=== PATIENT | female | born 1945 | race Caucasian/White ===

== ENCOUNTER 2020-11-02 07:44 | Outpatient (CLI) | payer MEDICARE, SELFPAY ==
--- NOTE | ~2020-11-02 | MM_ITS ---
EXAMINATION: MM screening [facility] BI w murali HISTORY: Screening mammogram TECHNIQUE: Craniocaudal and mediolateral oblique 3-D tomosynthesis images were obtained and synthetic 2-D images were generated. CAD analysis was submitted and interpreted. COMPARISON: 10/01/2019 BREAST PARENCHYMAL COMPOSITION: There are scattered areas of fibroglandular density. FINDINGS: There is stable architectural distortion in the upper outer quadrant of the right breast at the site of prior excisional biopsy. There is no evidence of suspicious mass, calcification, or arch itectural distortion to suggest malignancy in either breast. There has been no suspicious interval ch juanis. IMPRESSION: 1. No mammographic evidence of malignancy. 2. Recommend routine screening mammography in one year. BI-RADS Category 2: Benign finding(s). Reviewed, dictated and finalized at location A. LOCATOR
== END 2020-11-02 07:45 | disposition home or self-care (01) ==
LOC: ANHIMG 07:49
PROVIDERS: PCP Emergency Medicine; Visit Provider Emergency Medicine
DX: Z12.31 Encounter for screening mammogram for malignant neoplasm of breast (principal)
CPT/HCPCS: 77063; 77067

== ENCOUNTER 2021-06-04 10:19 | Outpatient (CLI) | payer MEDICARE, SELFPAY ==
[2021-06-04 11:07] LABS: Alanine Aminotransferase 20 U/L (4-35); Albumin Level 4.8 g/dL (3.5-5.1); Alkaline Phosphatase 67 U/L (38-126); Anion Gap 11 mmol/L (8-16); Aspartate Amino Transferase 32 U/L (14-36); Blood Urea Nitrogen 20 mg/dL (7-17); Calcium 9.5 mg/dL (8.4-10.2); Carbon Dioxide 29 mmol/L (22-30); Chloride 102 mmol/L (98-107); Cholesterol 109 mg/dL (0-200); Estimated Glomerular Filt Rate > 60; Glucose 145 mg/dL (65-110); HDL Direct 38 mg/dL; Sodium 142 mmol/L (137-145); Triglycerides 136 mg/dL (<150)
[2021-06-04 11:18] LABS: LDL Cholesterol Direct 49 mg/dL
[2021-06-04 12:05] LABS: Hemoglobin A1C 6.9 % (<5.7)
== END 2021-06-04 10:20 | disposition home or self-care (01) ==
LOC: ANHLAB 10:22
PROVIDERS: PCP Emergency Medicine; Visit Provider Emergency Medicine
DX: E78.5 Hyperlipidemia, unspecified (principal); E11.9 Type 2 diabetes mellitus without complications
CPT/HCPCS: 36415; 80053; 80061; 83036

== ENCOUNTER 2021-07-26 07:59 | Outpatient (CLI) | payer MEDICARE, SELFPAY ==
--- NOTE | 2021-07-26 09:04 | ECG_ITS ---
Measurements Intervals [place] Rate: 75 P: MD: 0 QRS: -32 QRSD: 89 T: 15 QT: 391 QTc: 437 Interpretive Statements ATRIAL FIBRILLATION LEFT AXIS DEVIATION POOR R WAVE PROGRESSION, ANTERIOR LEADS INFERIOR INFARCT, AGE INDETERMINATE BASELINE ARTIFACT- I, II, III, AVR, AVL, AVF ABNORMAL ECG Electronically Signed On 07-26-2021 12:51:47 [address] EQUIPMENT OPERATOR by Pato Anderson D.O.
[2021-07-26 10:00] LABS: Basophils Absolute Auto 0.1 K/mm3 (0.0-0.1); Basophils Percent Auto 0.8 % (0.2-1.2); Eosinophils Absolute Auto 0.1 K/mm3 (0-0.3); Eosinophils Percent Auto 1.8 % (0-4.4); Hematocrit 36.9 % (37.0-47.0); Hemoglobin 11.9 g/dL (12.0-15.0); Immature Granulocyte Absolute 0.01 K/mm3 (0.00-0.031); Immature Granulocyte Percent A 0.2 % (0-0.5); Lymphocytes Absolute Auto 1.68 K/mm3 (0.9-3.2); Lymphocytes Percent Auto 27.7 % (18.3-44.2); Mean Corpuscular HGB Conc 32.2 g/dl (32-36); Mean Corpuscular Hemoglobin 31.8 pg (26-34); Mean Corpuscular Volume 98.7 fl (80-100); Mean Platelet Volume 10.9 fl (7.4-10.4); Monocytes Absolute Auto 0.5 K/mm3 (0.1-0.6); Monocytes Percent Auto 7.4 % (2.6-8.5); Neutrophils Absolute Auto 3.8 K/mm3 (1.3-6.7); Neutrophils Percent Auto 62.1 % (45.5-73.1); Platelet Count Result 264 k/mm3 (150-375); Red Blood Count 3.74 M/mm3 (4.2-5.4); Red Cell Distribution Width 13.8 % (11.5-14.5); White Blood Count 6.1 K/mm3 (4.5-10.0)
[2021-07-26 10:09] LABS: INR 2.6; Partial Thromboplastin Time 33.6 SECONDS (22.3-36.8); Prothrombin Time 27.4 Seconds (11.1-14.7)
[2021-07-26 10:10] LABS: Urine Cotinine NEGATIVE
[2021-07-26 10:14] LABS: Albumin Level 4.5 g/dL (3.5-5.1); Anion Gap 7 mmol/L (8-16); Blood Urea Nitrogen 18 mg/dL (7-17); Calcium 9.4 mg/dL (8.4-10.2); Carbon Dioxide 32 mmol/L (22-30); Chloride 100 mmol/L (98-107); Estimated Glomerular Filt Rate > 60; Glucose 165 mg/dL (65-110); Potassium 4.2 mmol/L (3.4-5.0); Sodium 139 mmol/L (137-145)
[2021-07-26 10:21] LABS: Add Urine Microscopic? YES; Appearance Urine Clear (Clear); Bilirubin Urine Negative (Negative); Blood Urine Negative (Negative); Color Urine Yellow (Yellow); Glucose Urine UA Negative (Negative); Ketones Urine Negative (Negative); Leukocyte Esterase Ur 2+ LEU/UL (Negative); Mucus Urine Rare /lpf; Nitrate Urine Negative (Negative); Protein Urine Negative (Negative); Specific Grav Ur 1.014 (1.001-1.035); Squamous Epithelial Cell Urine Rare /hpf (Few); Urobilinogen Urine Negative mg/dL (<2.0)
== END 2021-07-26 08:00 | disposition home or self-care (01) ==
LOC: ANHSURGERY 08:03
PROVIDERS: PCP Emergency Medicine; Visit Provider Orthopaedic Surgery
DX: M17.11 Unilateral primary osteoarthritis, right knee (principal); Z01.818 Encounter for other preprocedural examination
CPT/HCPCS: 80048; 80307; 82040; 85025; 85610; 85730; 87081; 87086; 93005

== ENCOUNTER 2021-08-24 00:21 | Day surgery (SDC) | payer MEDICARE, SELFPAY ==
--- NOTE | 2021-07-26 07:58 | PC.NURSE ---
Addendum entered by Dinora Gerard RN 08/20/21 09:58: PT RESCHEDULED TO 08/24/21, 1400. INSTR PT TO ARRIVE AT 1200. REVIEWED PRE-OP INSTRUCTIONS, SHE RELAYS UNDERSTANDING. PT STATES DR BLACKWELL INSTR TO HOLD XERALTO 3 DAYS PRE-OP,SHE RELAYS UNDERSTANDING. Original Note: Report to the Outpatient Waiting Room, entrance under the green pavilion located off [facility], at time ___6:00AM____ on date 08/11/21 . OR Time: 7:30AM___. - You and your visitor will be asked a series of questions to screen for COVID 19 for your protection. - A mask is required within the hospital. - Only one visitor is allowed at this time. Patient visitors will be guided where to wait when not with patient. Preoperative COVID Testing Requirements: No COVID Test needed if: (proof is required; if not received patient will have Rapid Test prior to entry) - Patient has received COVID Vaccine at least 14 days prior to procedure date or - Patient has positive COVID test result within last 90 days of surgery date. COVID Test needed if above criteria is not met If not COVID vaccinated a COVID test must be conducted within 72 hours of surgery and patient is asked to isolate self from time of testing until procedure. You will go to the [facility] for your COVID testing. The [facility] site is located at the corner of [address] [facility]. You will only be called if COVID results are positive and your surgeon may reschedule your elective surgery date. Patients may have clear liquids (water, carbonated beverages, clear teas, apple juice) until 3 hours prior to surgery with a maximum of 20 ounces. - No food from midnight until time of surgery - Infants may have breast milk until 4 hours before surgery, infant formula 6 hours prior to surgery. - Children will be allowed to drink immediately following surgery. If applicable, please bring a bottle or sippy cup to assist with drinking. Juice, water, soda, and popsicles are readily available. For infants on formula, please bring formula the day of surgery. Pacifiers are allowed. Take the following medications with a SIP of water the morning of surgery: ALBUTEROL INHALER NEEDED, EYE DROPS, METOPROLOL Medications to discontinue per physician XERALTO PER DR BLACKWELL(PT SEEING MD TODAY, WILL CONFIRM) Date to take last dose Please no make-up, nail andorran, hairspray, perfume, deodorant, or body powder the day of surgery. No jewelry (including any body piercings) or valuables the day of surgery, leave them at home. Please take a shower or bath the night before, or the morning of, surgery with an antibacterial soap. Wear comfortable, loose fitting clothing. Children are encouraged to wear pajamas. - Jewelry must be removed prior to entering the operating room. Rings and piercings that are not removed may be cut off. - The hospital will not accept responsibility for valuables. - Please leave all valuables, including medications, at home the day of surgery. HIBICLENS SCRUB DAILY STARTING 3 DAYS PRIOR TO SURGERY If you are going home after surgery, a licensed intermodal truck driver must drive you home. - NO public transportation without another adult. - We recommend that an adult stay with you for 24 hours following discharge. - We also recommend that you do not drive, make important decision, drink alcoholic beverages, or take any drugs that were not prescribed by your health care provider for at least 24 hours after your discharge time. For Pediatric surgeries, we recommend two adults accompany the child home (only one inside the building at this time). Follow any additional instructions given to you from your surgeon. Telephone instructions given to ____PATIENT and asked if any additional questions and then verbalized understanding. Patient advised to call surgeon office or pre surgery nurs
[2021-07-26 08:22] VITALS: BMI 28.9
[2021-07-26 08:48] VITALS: BP 164/82; PULSE 76; RESP 16; TEMP 36.7; O2SAT 97
--- NOTE | 2021-08-10 13:45 | SUR.PREOP ---
patient contacted and informed case cancelled for 08/11/2021 instructed to call office for new surgery date and time and to ask about Xeralto being held or restarted, understanding stated
[2021-08-24] VITALS (11 sets, daily range): BP systolic 116–150; BP diastolic 49–72; PULSE 74–90; RESP 12–18; TEMP 35.9–36.9; O2SAT 96–100
--- NOTE | ~2021-08-24 | XR_ITS ---
EXAMINATION: XR knee RT 2V DATE: 08/24/2021 12:38 INDICATION: Postoperative evaluation following right total knee arthroplasty. TECHNIQUE: Anteroposterior and lateral views of the right knee were obtained. COMPARISON: None. FINDINGS: Right total knee arthroplasty without patellar resurfacing appears well seated and in near anatomic a lignment. No fractures identified. Skin marco a and expected postoperative subcutaneous, intramedul arturo and intra-articular gas. IMPRESSION: 1. Right total knee arthroplasty, negative for postoperative purposes. Reviewed, dictated and finalized at location A. IZATION MANAGEMENT UM NURSE
--- NOTE | 2021-08-24 07:18 | WPDHPUPDATE1 ---
History and Physical Update Update Date/Time: 08/24/21 07:18 History and Physical has been reviewed, including an updated exam of the patient. There are NO changes in the patient's condition. Risks, benefits, and alternatives have been discussed and questions answered. Patient agrees to proceed with procedure.
[2021-08-24] MEDS: ACETAMINOPHEN 500 MG TABLET 1000 MG PO ×3 (09:30→21:50)
[2021-08-24] MEDS: LACTATED RINGERS 1,000 ML 30 ML IV CONT ×2 (09:50→12:26)
--- NOTE | 2021-08-24 09:56 | WPDANESEPPF ---
Anes - Initial Pre Proc Eval Procedure: Operation Date: 08/24/21 11:00 Proposed Procedures p Right Total Knee Arthroplasty - Jaxon Garcia MD Date/Time: 08/24/21 09:56 Surgeon: Jaxon Garcia MD Pre Op Diagnosis: right knee djd Patient Data Age: 76 Gender: F Height: 1.57 m Weight: 71.7 kg Last Vital Signs Temp 36.7 C 07/26/21 08:48 Pulse 76 07/26/21 08:48 Resp 16 07/26/21 08:48 BP 164/82 H 07/26/21 08:48 Pulse Ox 97 07/26/21 08:48 Allergies Allergy/AdvReac Type Severity Reaction Status Date / Time No Known Allergies Allergy Verified 08/24/21 09:14 Home Medications Medication Instructions Recorded Confirmed Type albuterol sulfate 90 mcg/actuation 1 inhalation INHALATION Q4H PRN 09/06/19 08/24/21 History aerosol inhaler lancets #50 each 09/06/19 07/26/21 History latanoprost 0.005 % eye drops 1 drop EACH EYE HS 09/06/19 08/24/21 History metoprolol succinate 100 mg 100 mg PO QAM 09/06/19 08/24/21 History tablet,extended release 24 hr blood sugar diagnostic #10 each 01/24/20 07/26/21 History brimonidine 0.1 % eye drops 1 drop EACH EYE BID ml 01/24/20 08/24/21 History niacin 500 mg capsule,extended 500 mg PO BID cap 01/24/20 08/24/21 History release atorvastatin 40 mg tablet 40 mg PO DAILY #90 tablet 05/18/21 08/24/21 Rx chlorhexidine gluconate 4 % 1 applic TOPICAL ONCE #237 ml 06/18/21 08/24/21 Rx topical liquid lisinopril 2.5 mg PO QAM 07/26/21 08/24/21 History metformin 500 mg PO BID 07/26/21 08/24/21 History rivaroxaban [Xarelto] 20 mg PO HS 07/26/21 08/24/21 History alendronate 70 mg tablet 70 mg PO WEEKLY #12 tablet 08/11/21 08/24/21 Rx Vascepa 1 gram capsule 2 g PO BID #360 cap NS 08/16/21 08/24/21 Rx Patient hx anesthesia problems: none Family hx anesthesia problems: none Results Review: All pre-operative results and documents have been reviewed as part of the pre-operative evaluation. [facility] Past Medical History Medical History Afib HLD (hyperlipidemia) HTN (hypertension) Left knee pain Post-menopausal Quadriceps weakness Surgical History Surgical History S/P total knee arthroplasty Social History Social History Second hand tobacco smoke exposure: Yes ( X 55 YRS) Alcohol intake: never Substance use: never Living arrangements: with family Additional living arrangements comments: Gender identity (if verbalized by the patient): Female Spiritual care concerns: No Anes - Eval Final PreProcedure Day of Procedure 08/24/21 09:56 Patient weight: overweight Heart: irregular rhythm Lungs: clear to auscultation Airway: Mallampati scale class II Neurological: alert and oriented Last oral intake: >/= 8 hours ASA classification: III Emergent: no Anesthetic plan: proceed Anesthesia type and monitoring: general LMA and standard monitoring Results Review: All pre-operative results and documents have been reviewed as part of the pre-operative evaluation. Informed Consent: The patient's anesthetic plan and its attendant risks and benefits were discussed with the patient/family/POA. Questions were solicited and answers provided to the satisfaction of the patient/family/POA.
[2021-08-24 09:57] LABS: Glucose Point of Care 145 mg/dl (65-105)
[2021-08-24] MEDS: TRANEXAMIC ACID 1,000MG/ISO100 1,000 MG/100 ML BAG 200 MG IVPB (10:00)
--- NOTE | 2021-08-24 10:15 | WPDANESPNB ---
Anes - Peripheral Nerve Block Date/Time: 08/24/21 10:15 I have discussed with the patient/family/POA the placement of a peripheral nerve block for post-operative pain management, including associated risks, benefits, complications, and side effects. Alternative methods of post-operative analgesia were detailed. Questions were solicited and answers provided to the satisfaction of the patient/family/POA. Time-Out: A pre-procedural Time-Out was completed immediately before starting the procedure and confirmed: Patient Identification, Site, Procedure, Patient Position and the Availability of Requisite Equipment. Clinical Indications: Acute post-operative pain management requested by the operative surgeon. Nerve Block Insertion Note Anes-nerve block: femoral right Patient position: supine Skin prep: chlorhexidine Needle: 22 gauge, stimulating, insulated echogenic needle. Needle length: 80 mm Technique: nerve stimulation lost at (mA) (0.3) Injectate: bupivacaine 0.25% with epi 5 mcg/ml (no epi, 25cc) Observations: tolerated well Complications: none Procedure start time:: 1010 Procedure end time:: 1014
[2021-08-24 10:23] LABS: Prothrombin Time 13.4 Seconds (11.1-14.7)
[2021-08-24] MEDS: ceFAZolin 2 GM/D5W 50 ML 2 GM/50 ML BAG IVPB ×2 (10:34→17:59)
[2021-08-24] MEDS: GENTAMICIN BONE CEMENT REFOBACIN 1 EACH TOPICAL (11:38)
[2021-08-24] MEDS: TRANEXAMIC ACID 1,000 MG/10 ML AMPUL 1000 MG IV PUSH (11:50)
--- NOTE | 2021-08-24 12:45 | W.PM.PROC2 ---
Procedure Note - Detailed Date of Procedure 08/24/21 Pre-op Diagnosis right knee djd Post-op Diagnosis same Procedure Performed R TKA Surgeon Jaxon Garcia MD Anesthesia general Description of Procedure THE RIGHT KNEE WAS PREPPED AND DRAPED IN THE STERILE FASHION. THERE WAS A 10 DEGREE FLEXION CONTRACTURE. A MIDLINE SKIN INCISION WAS MADE. A MEDIAL PARAPATELLAR ARTHROTOMY WAS MADE. THE PATELLA WAS EVERTED. THERE WAS TRICOMPARTMENT DJD. THERE WAS MINIMAL PATELLA DJD. AN INTRAMEDULLARY FRANCESCA WAS PLACED IN THE FEMUR. A DISTAL FEMORAL CUT WAS MADE IN 5 DEGREES OF VALGUS REMOVING APPROXIMATELY 9 MM OF BONE FROM THE DISTAL FEMUR. THE FEMUR WAS SIZED TO 60. A 60 FEMORAL CUTTING BLOCK WAS PLACED IN 3 DEGREES OF EXTERNAL ROTATION AND IN ALIGNMENT WITH FRANCISCO'S LINE AND THE TRANSEPICONDYLAR AXIS. ANTERIOR POSTERIOR AND CHAMFER CUTS WERE MADE. THE CUTS WERE EXCELLENT. NEXT AN INTRAMEDULLARY CUTTING GUIDE WAS PLACED IN THE TIBIA. A TRANS TIBIAL CUT WAS MADE ALONG THE LONG AXIS OF THE TIBIA. APPROXIMATELY 10 MM OF BONE WAS REMOVED FROM THE HIGH SIDE OF THE TIBIA. THE TIBIA WAS THEN PLANED TO A SMOOTH SURFACE. POSTERIOR FEMORAL OSTEOPHYTES WERE REMOVED FROM THE FEMORAL CONDYLES. A 71 TIBIAL TRIAL WAS PLACED IN ALIGNMENT WITH THE 1/3 MEDIAL ASPECT OF THE TIBIAL TUBERCLE. THEN A 60 FEMORAL TRIAL COMPONENT WAS PLACED. BOTH HAD EXCELLENT FITS. EVENTUALLY A 10 MM CR POLYETHYLENE TRIAL COMPONENT WAS PLACED. THE KNEE WAS TAKEN THROUGH A RANGE OF MOTION. THE KNEE CAME OUT TO FULL EXTENSION. THERE WAS NO ABNORMAL TILT TO THE PATELLA. THERE WAS GOOD A/P AND VARUS/VALGUS STABILITY. THERE WAS NO EXCESSIVE ROLL BACK WITH FLEXION. THE TRIAL COMPONENTS WERE REMOVED. THEN A 60 FEMORAL COMPONENT AND 71 TIBIAL COMPONENT WITH A 10 CR POLYETHYLENE COMPONENT WERE CEMENTED INTO PLACE. ONCE THE CEMENT WAS HARD THE KNEE WAS TAKEN THROUGH A ROM AGAIN AND FOUND TO BE STABLE WITH NO PATELLA TILT NO EXCESSIVE ROLL BACK WITH FLEXION AND GOOD STABILITY WITH COMPLETE AND FULL EXTENSION. THE KNEE WAS IRRIGATED WITH STERILE BETADINE AND WATER FOR ABOUT 3 MINUTES. THE BLEEDERS WERE CAUTERIZED. THE ARTHROTOMY WAS REPAIRED WITH NUMBER 1 VICRYL. THE SUB CUTANEOUS LAYER WITH 2-0 VICRYL AND THE SKIN WITH ED. THE WOUND WAS WASHED AND A STERILE DRESSING WAS APPLIED. PATIENT WAS EXTUBATED. Estimated Blood Loss -50.0 Pathology none sent Complications No immediate complications Condition stable Disposition PACU
[2021-08-24 12:51] LABS: Glucose Point of Care 115 mg/dl (65-105)
--- NOTE | 2021-08-24 14:27 | ADMGEN ---
This patient, Eugenia Ghotra, was admitted to [facility] Surgery-3. Patient oriented to hospital policies and general routines including ID bracelet, bed and alarms, visiting hours, pain management, procedures, bathroom and other care routines, personal items, smoking policy, room service/diet, and visiting hours. Information on how to activate the Rapid Response Team has been discussed. Patient/Family are encouraged to report perceived risks to care and to ask questions if they do not understand what they are told or what they should do.
[2021-08-24] MEDS: ONDANSETRON INJ 4 MG/2 ML VIAL IV PUSH (15:56)
[2021-08-24] MEDS: SODIUM CHLORIDE 0.9% IV 1,000 ML 125 ML IV CONT (16:07)
[2021-08-24 17:51] LABS: Glucose Point of Care 132 mg/dl (65-105)
[2021-08-24] MEDS: NIACIN SA 500 MG TABLET PO (18:00)
[2021-08-24] MEDS: SENNA/DOCUSATE SODIUM TABLET 2 TAB PO (18:00)
[2021-08-24] MEDS: OMEGA 3 POLYUNSAT FATTY ACIDS 1 GM CAP 2 GM PO (18:01)
[2021-08-24] MEDS: metFORMIN HCL 500 MG TABLET PO (18:01)
[2021-08-24] MEDS: BRIMONIDINE TARTRATE 0.1% 5 ML OPHTH DROPS 1 DROP EACH EYE (18:10)
[2021-08-24] MEDS: FAMOTIDINE 20 MG TABLET PO (21:12)
[2021-08-24] MEDS: RIVAROXABAN 20 MG TABLET PO (21:12)
[2021-08-24] MEDS: LATANOPROST 0.005% OP SOLN 2.5 ML BTL 1 DROP EACH EYE (21:12)
[2021-08-25] MEDS: ONDANSETRON INJ 4 MG/2 ML VIAL IV PUSH ×2 (01:15→07:29)
[2021-08-25 03:22] VITALS: BP 151/78; PULSE 89; RESP 18; TEMP 37; O2SAT 100
[2021-08-25] MEDS: ceFAZolin 2 GM/D5W 50 ML 2 GM/50 ML BAG IVPB ×2 (03:27→10:47)
[2021-08-25] MEDS: ACETAMINOPHEN 500 MG TABLET 1000 MG PO (05:00)
[2021-08-25 06:00] VITALS: BP 127/67; PULSE 88; RESP 16; TEMP 36.4; O2SAT 97
[2021-08-25 06:52] LABS: Basophils Percent Auto 0.4 % (0.2-1.2); Hematocrit 31.6 % (37.0-47.0); Hemoglobin 10.3 g/dL (12.0-15.0); Immature Granulocyte Absolute 0.05 K/mm3 (0.00-0.031); Immature Granulocyte Percent A 0.4 % (0-0.5); Lymphocytes Percent Auto 11.6 % (18.3-44.2); Mean Corpuscular HGB Conc 32.6 g/dl (32-36); Mean Corpuscular Hemoglobin 31.5 pg (26-34); Mean Corpuscular Volume 96.6 fl (80-100); Mean Platelet Volume 10.5 fl (7.4-10.4); Monocytes Absolute Auto 0.8 K/mm3 (0.1-0.6); Monocytes Percent Auto 7.2 % (2.6-8.5); Neutrophils Percent Auto 80.4 % (45.5-73.1); Platelet Count Result 179 k/mm3 (150-375); Red Blood Count 3.27 M/mm3 (4.2-5.4); Red Cell Distribution Width 13.2 % (11.5-14.5); White Blood Count 11.2 K/mm3 (4.5-10.0)
[2021-08-25 07:14] LABS: Anion Gap 8 mmol/L (8-16); Blood Urea Nitrogen 15 mg/dL (7-17); Calcium 8.6 mg/dL (8.4-10.2); Carbon Dioxide 27 mmol/L (22-30); Chloride 97 mmol/L (98-107); Estimated CRCL calculation 63 ml/min; Estimated Glomerular Filt Rate > 60; Glucose 151 mg/dL (65-110); Sodium 132 mmol/L (137-145)
[2021-08-25] MEDS: metFORMIN HCL 500 MG TABLET PO (08:30)
[2021-08-25 08:45] VITALS: BP 142/64; PULSE 91; RESP 14; TEMP 36.2; O2SAT 98
[2021-08-25 09:16] VITALS: PULSE 91
[2021-08-25] MEDS: METOPROLOL SUCCINATE EXT REL 100 MG TABCR PO (09:16)
[2021-08-25] MEDS: FAMOTIDINE 20 MG TABLET PO (09:21)
[2021-08-25] MEDS: lisinopriL 2.5 MG TABLET PO (09:21)
[2021-08-25] MEDS: SENNA/DOCUSATE SODIUM TABLET 2 TAB PO (09:22)
[2021-08-25] MEDS: diphenhydrAMINE HCl INJ 50 MG/ML VIAL 25 MG IV PUSH (09:22)
[2021-08-25] MEDS: ATORVASTATIN 40 MG TABLET PO (09:22)
[2021-08-25] MEDS: BRIMONIDINE TARTRATE 0.1% 5 ML OPHTH DROPS 1 DROP EACH EYE (09:34)
--- NOTE | 2021-08-25 10:30 | P.PNAN_ITS ---
Anes - Prog Note Post-Op Date/Time: 08/25/21 10:30 Cardiovascular status: normal Respiratory status: normal Airway patency: baseline Mental status: baseline Post-Op hydration status: normal Vital Signs: Last Vital Signs Temp 36.4 C 08/25/21 06:00 Pulse 91 08/25/21 09:16 Resp 16 08/25/21 06:00 BP 127/67 08/25/21 06:00 Pulse Ox 97 08/25/21 06:00 Pain Score (VAS): 0 I/O: Intake & Output 08/24/21 08/25/21 08/25/21 23:59 07:59 15:59 Intake Total 50 800 Output Total 50 Balance 50 750 Laboratory Tests 08/25/21 06:44 08/25/21 06:44 08/24/21 08/24/21 08/24/21 09:20 12:49 17:48 WBC RBC Hgb Hct MCV MCH MCHC RDW Plt Count MPV Immature Gran % (Auto) Neut % (Auto) Lymph % (Auto) [place] % (Auto) Eos % (Auto) Baso % (Auto) Lymph # (Auto) [place] # (Auto) Eos # (Auto) Baso # (Auto) Abs Immat Gran (auto) Absolute Neuts (auto) Absolute Nucleated RBC Nucleated RBC % Sodium Potassium Chloride Carbon Dioxide Anion Gap BUN Creatinine Estim Creat Clear Calc Estimated GFR Glucose POC Capillary Glucose 115 H 132 H Calcium Blood Type A Positive Antibody Screen Negative 08/25/21 08/25/21 06:44 06:44 WBC 11.2 H RBC 3.27 L Hgb 10.3 L Hct 31.6 L MCV 96.6 MCH 31.5 MCHC 32.6 RDW 13.2 Plt Count 179 MPV 10.5 H Immature Gran % (Auto) 0.4 Neut % (Auto) 80.4 H Lymph % (Auto) 11.6 L [place] % (Auto) 7.2 Eos % (Auto) 0.0 Baso % (Auto) 0.4 Lymph # (Auto) 1.30 [place] # (Auto) 0.8 H Eos # (Auto) 0.0 Baso # (Auto) 0.0 Abs Immat Gran (auto) 0.05 H Absolute Neuts (auto) 9.0 H Absolute Nucleated RBC 0.0 Nucleated RBC % 0.0 Sodium 132 L Potassium 4.0 Chloride 97 L Carbon Dioxide 27 Anion Gap 8 BUN 15 Creatinine 0.60 L Estim Creat Clear Calc 63 Estimated GFR > 60 Glucose 151 H POC Capillary Glucose Calcium 8.6 Blood Type Antibody Screen Post-procedural complaints: none Patient Feedback: Patient satisfied with anesthetic care.
[2021-08-25 11:14] LABS: Glucose Point of Care 166 mg/dl (65-105)
[2021-08-25] MEDS: NIACIN SA 500 MG TABLET PO (11:21)
[2021-08-25] MEDS: OMEGA 3 POLYUNSAT FATTY ACIDS 1 GM CAP 2 GM PO (11:21)
--- NOTE | 2021-08-25 11:35 | PM.IMCN ---
Assessment and Plan Assessment and plan (1) S/P total knee arthroplasty: Qualifiers: Laterality: left Qualified Code(s): Z96.652 - Presence of left artificial knee joint Code(s): Z96.659 - Presence of unspecified artificial knee joint Status: Acute (2) Right knee DJD: Qualifiers: Osteoarthritis type: primary Qualified Code(s): M17.11 - Unilateral primary osteoarthritis, right knee Code(s): M17.11 - Unilateral primary osteoarthritis, right knee Status: Acute (3) Diabetes mellitus: Qualifiers: Diabetes mellitus type: type 2 Diabetes mellitus alf insulin use: without terminal supervisor use Diabetes mellitus complication status: without complication Qualified Code(s): E11.9 - Type 2 diabetes mellitus without complications Code(s): E11.9 - Type 2 diabetes mellitus without complications Status: Acute (4) HTN (hypertension): Qualifiers: Hypertension type: essential hypertension Qualified Code(s): I10 - Essential (primary) hypertension Code(s): I10 - Essential (primary) hypertension Status: Acute (5) Afib: Qualifiers: Atrial fibrillation type: paroxysmal Qualified Code(s): I48.0 - Paroxysmal atrial fibrillation Code(s): I48.91 - Unspecified atrial fibrillation Status: Acute (6) HLD (hyperlipidemia): Qualifiers: Hyperlipidemia type: mixed hyperlipidemia Qualified Code(s): E78.2 - Mixed hyperlipidemia Code(s): E78.5 - Hyperlipidemia, unspecified Status: Acute Additional Plan 76-year-old female admitted to the hospital for treatment of DJD of right knee with total knee arthroplasty. Patient was admitted underwent uncomplicated surgery and was monitored overnight. She did very well. At the time of discharge she is ambulating with walker, tolerating p.o., voiding and defecating without difficulty. She has been continued on her Xarelto for her atrial fibrillation as well as her other home medications and this has been reviewed with orthopedist. Discharge home with home health care in stable condition with indications of follow-up with her primary physician within 1 week and to return to orthopedist office as directed. HPI Data of Consult Consult date: 08/25/21 Requesting Physician: Jaxon Garcia MD Primary Care Provider: Hong Slater MD Consult Narrative Narrative: Eugenia Ghotra is a 76 year old female w HTN, hyperlipidemia, atrial fibrillation, and right degenerative joint disease of the knee is seen in surgical area after presenting to [facility] for right TKA. Patient is postoperative doing very well. She is able to ambulate to restroom with minimal assistance and her walker. Review of Systems Review of Systems: All systems reviewed & are unremarkable except as noted in HPI and below PMFSH Past Medical History Medical History (Updated 08/25/21 @ 17:32 by Jeana Horner MD) Afib Diabetes mellitus HLD (hyperlipidemia) HTN (hypertension) Left knee pain Post-menopausal Quadriceps weakness Surgical History Surgical History S/P total knee arthroplasty Family History Family History (Updated 08/25/21 @ 17:33 by Jeana Horner MD) Other Diabetes mellitus Heart disease Hypertension Social History Social History Smoking status: Never smoker Second hand tobacco smoke exposure: No Alcohol intake: former Substance use: never Living arrangements: with family Additional living arrangements comments: Gender identity (if verbalized by the patient): Female Spiritual care concerns: No Meds Home Medications and Allergies Home Medications Medication Instructions Recorded Confirmed Type albuterol sulfate 90 mcg/actuation 1 inhalation INHALATION Q4H PRN 09/06/19 08/24/21 History aerosol inhaler ann
--- NOTE | 2021-08-25 12:04 | PCOTNOTE ---
On 08/25/21, the student, Nancy Martinez, provided care and [facility] this [facility]. I have reviewed the student's documentation and agree with the findings.
--- NOTE | 2021-08-25 13:43 | PM.PNORT ---
Progress Note: A&P Additional Plan POD 1 DOING WELL OK TO DC HOME F/U IN 3 WEEKS Time Spent With Patient Time with patient: less than 15 minutes Subjective Subjective Date/Time Seen: 08/25/21 13:43 POD 1 DOING WELL. WALKING WELL WITH PT. PAIN CONTROLLED Exam Extrem: Other: R KNEE WOUND CLEAN AND DRY NV INTACT VSS AFEBRILE, DRESSING IN PLACE NV INTACT CALF SOFT NEG HOMANS SIGN Objective Data Vital Signs Vital Signs: Vital Signs - 24 hr 08/24/21 13:48 08/24/21 14:36 08/24/21 15:22 Temperature 36.6 C 35.9 C L 36.1 C L Pulse Rate 89 82 74 Respiratory Rate 14 14 12 Blood Pressure 150/68 H 145/67 H 148/49 H Pulse Oximetry 100 96 99 08/24/21 19:41 08/24/21 20:00 08/25/21 03:22 Temperature 36.9 C 37.0 C Pulse Rate 86 89 89 Respiratory Rate 16 18 18 Blood Pressure 116/57 L 151/78 H Pulse Oximetry 96 100 100 08/25/21 06:00 08/25/21 08:45 08/25/21 09:16 Temperature 36.4 C 36.2 C L Pulse Rate 88 91 91 Respiratory Rate 16 14 Blood Pressure 127/67 142/64 H Pulse Oximetry 97 98 Intake/Output Intake/Output: Intake & Output 08/22/21 08/23/21 08/24/21 08/25/21 23:59 23:59 23:59 23:59 Intake Total 2500 850 Output Total 50 Balance 2500 800 Meds/Results Medications: Active Medications Generic Name Dose Route Start Last Admin Trade Name Freq PRN Reason Stop Dose Admin Acetaminophen 1,000 mg 08/24/21 13:37 08/25/21 05:00 Acetaminophen 500 Mg Tablet PO 1,000 mg Q6H PRN Administration Pain Rated 1-3 Albuterol 1 puff 08/24/21 13:37 Albuterol Sulfate (*Sp) Aerosol 1 Puff INHALATION Q4H PRN Dyspnea Alendronate Sodium 70 mg 08/28/21 06:30 Alendronate Sodium 70 Mg Tablet PO Sa@0630 CY Atorvastatin Calcium 40 mg 08/25/21 09:00 08/25/21 09:22 Atorvastatin 40 Mg Tablet PO 40 mg DAILY CY Administration Brimonidine Tartrate 1 drop 08/24/21 17:00 08/25/21 09:34 Brimonidine Tartrate 0.1% 5 Ml Ophth Drops EACH EYE 1 drop BID CY Administration Diazepam 5 mg 08/24/21 13:37 Diazepam (*Crx) 5 Mg Tablet PO Q8H PRN Spasms Diphenhydramine HCl 25 mg 08/24/21 13:37 08/25/21 09:22 Diphenhydramine Hcl Inj 50 Mg/Ml Vial IV PUSH 25 mg Q6H PRN Administration Itching Famotidine 20 mg 08/24/21 21:00 08/25/21 09:21 Famotidine 20 Mg Tablet PO 20 mg Q12HR CY Administration Fish Oil 2 gm 08/24/21 17:00 08/25/21 11:21 [place] 3 Polyunsat Fatty Acids 1 Gm Cap PO 2 gm BID CY Administration Latanoprost 1 drop 08/24/21 21:00 08/24/21 21:12 Latanoprost 0.005% Op Soln 2.5 Ml Btl EACH EYE 1 drop HS CY Administration Lisinopril 2.5 mg 08/25/21 09:00 08/25/21 09:21 Lisinopril 2.5 Mg Tablet PO 2.5 mg QAM CY Administration Magnesium Hydroxide 30 ml 08/24/21 13:37 Magnesium Hydroxide Susp 30 Ml Udc PO BID PRN Constipation Metformin HCl 500 mg 08/24/21 17:00 08/25/21 08:30 Metformin Hcl 500 Mg Tablet PO 500 mg BIDWM CY Administration Metoprolol Succinate 100 mg 08/25/21 09:00 08/25/21 09:16 Metoprolol Succinate Ext Rel 100 Mg Tabcr PO 100 mg QAM CY Administration Naloxone HCl 0.1 mg 08/24/21 13:37 Naloxone Hcl 0.4 Mg/Ml Vial IV PUSH Q2M PRN Opiate Reversal Niacin 500 mg 08/24/21 17:00 08/25/21 11:21 Niacin Sa 500 Mg Tablet PO 500 mg BID CY Administration Ondansetron HCl 4 mg 08/24/21 13:37 08/25/21 07:29 Ondansetron Inj 4 Mg/2 Ml Vial IV PUSH 4 mg Q4H PRN Administration Nausea And Vomiting Oxycodone HCl 10 mg 08/24/21 13:37 Oxycodone Hcl (*Crx) 5 Mg Tab Ir PO Q4H PRN Pain Rated 7-10 Oxycodone/Acetaminophen 1 tablet 08/24/21 13:37 Oxycodone/Acetaminophen (*Crx) 5-325 Mg Tablet PO Q4H PRN Pain Rated 4-6 Polyethylene Glycol 17 gm 08/25/21 09:00 08/25/21 09:27 Polyethylene Glycol 3350 17 Gm Powd.Pack PO Not Given QAM CY Rivaroxaban 20 mg 08/24/21 2
--- NOTE | 2021-08-25 13:47 | PM.DS ---
DS: Admitting Diagnosis Discharge Date 08/25/21 Admitting Diagnosis R KNEE DJD DS: Discharge Diagnosis Discharge Diagnosis (1) Right knee DJD: Qualifiers: Osteoarthritis type: primary Qualified Code(s): M17.11 - Unilateral primary osteoarthritis, right knee Code(s): M17.11 - Unilateral primary osteoarthritis, right knee Status: Acute DS: Summary Hospital Course Reason for hospitalization: Hospital Course: AD HER R TKA AND WAS ADMITTED TO THE MED/SURG FLOOR WITH NO POSTOP COMPLICATIONS. SHE HAD PT THE DAY OF SURGERY. SHE WAS TAKING GOOD PO AND WAS DOING VERY WELL. SHE WAS DOING WELL ON POD 1 AND PASSED PT. SHE WAS TAKING GOOD PO INTAKE AND HER PAIN WAS CONTROLLED. SHE WOULD DC'd HOME. SHE WOULD F/U IN 2 WEEKS. SHE WAS TO CONTINUE HER ANTICOAGULATION WITH XARELTO. SHE WOULD HAVE HOME PT AND NURSING. SHE WOULD BE WBAT. SHE WOULD F/U IN 3 WEEKS OR SOONER IF SHE HAD A PROBLEM. Time spent discussing smoking cessation with patient: 3 to 10 minutes Time Spent with Patient Time attestation: Total time spent providing and/or coordinating discharge services: DS: Data Data Completed and Pending Labs on day of discharge: Labs from last 24 hours 08/25/21 08/25/21 08/25/21 11:11 06:44 06:44 WBC 11.2 H RBC 3.27 L Hgb 10.3 L Hct 31.6 L MCV 96.6 MCH 31.5 MCHC 32.6 RDW 13.2 Plt Count 179 MPV 10.5 H Immature Gran % (Auto) 0.4 Neut % (Auto) 80.4 H Lymph % (Auto) 11.6 L [place] % (Auto) 7.2 Eos % (Auto) 0.0 Baso % (Auto) 0.4 Lymph # (Auto) 1.30 [place] # (Auto) 0.8 H Eos # (Auto) 0.0 Baso # (Auto) 0.0 Abs Immat Gran (auto) 0.05 H Absolute Neuts (auto) 9.0 H Absolute Nucleated RBC 0.0 Nucleated RBC % 0.0 Sodium 132 L Potassium 4.0 Chloride 97 L Carbon Dioxide 27 Anion Gap 8 BUN 15 Creatinine 0.60 L Estim Creat Clear Calc 63 Estimated GFR > 60 Glucose 151 H POC Capillary Glucose 166 H Calcium 8.6 08/24/21 17:48 WBC RBC Hgb Hct MCV MCH MCHC RDW Plt Count MPV Immature Gran % (Auto) Neut % (Auto) Lymph % (Auto) [place] % (Auto) Eos % (Auto) Baso % (Auto) Lymph # (Auto) [place] # (Auto) Eos # (Auto) Baso # (Auto) Abs Immat Gran (auto) Absolute Neuts (auto) Absolute Nucleated RBC Nucleated RBC % Sodium Potassium Chloride Carbon Dioxide Anion Gap BUN Creatinine Estim Creat Clear Calc Estimated GFR Glucose POC Capillary Glucose 132 H Calcium Discharge Plan Discharge Patient Disposition: Home Health Service Discharge Instructions: Per Care Coordination, patient to discharge with [facility] ( [phone]) for PT/OT and fci services. Post Op Total Knee Replacement Instructions Dr. Jaxon Garcia [phone] ? Your dressing will be changed prior to your discharge. You will be sent home with one additional dressing to be changed in 5 days by the home health RN. Your marco a will be removed on the 14th day after surgery and steri-strips will be placed. ? You may shower with your dressing but do not submerge in a bath tub. ? Do not drive or operate machinery until you are released by Dr. Gracia. ? Do not walk without a walker for any reason until you are released by Dr. Garcia. ? Continue to use your ice machine. Please use a towel or pillow case to protect your skin before applying your ice machine. ? Do NOT place a pillow under your knee. You may use a pillow from the calf down if needed. ? You may begin use of your CPM machine at home if you have been given one pre-operatively. DO NOT USE WHILE YOU ARE SLEEPING. ? Your follow up appointment is indicated in your discharge instructions. ? Your medications have been sent to your pharmacy. ? Please contact our office with any questions/concerns regarding your knee at [phone]. Patient Instructions: Antibiotic Form, Rivaroxaban (By mouth) Stand Laurent
== END 2021-08-25 14:30 | disposition home health service (06) ==
LOC: ANHSURGERY 08:39 → ANHSUROVER 13:42
PROVIDERS: PCP Emergency Medicine; Visit Provider Orthopaedic Surgery
PROC: (CPT 27447; principal; 2021-08-24 11:00)
DX: M17.11 Unilateral primary osteoarthritis, right knee (principal); G89.18 Other acute postprocedural pain; E11.9 Type 2 diabetes mellitus without complications; I10 Essential (primary) hypertension; I48.91 Unspecified atrial fibrillation; E78.5 Hyperlipidemia, unspecified; Z79.51 Long term (current) use of inhaled steroids; Z79.01 Long term (current) use of anticoagulants; Z79.84 Long term (current) use of oral hypoglycemic drugs
CPT/HCPCS: 27447; 64447; 36415; 73560; 80048; 80307; 82040; 82948; 85025; 85610; 85730; 86850; 86900; 86901; 87081; 87086; 93005; 97110; 97116; 97161; 97165; 97530; 97535; A9270; C1713; C1776; J0171; J0690; J1200; J1885; J2270; J2405; J2704; J2795; J7030; J7120

== ENCOUNTER 2021-09-30 09:23 | Outpatient (CLI) | payer MEDICARE, SELFPAY ==
[2021-09-30 10:07] LABS: Alanine Aminotransferase 16 U/L (4-35); Albumin Level 4.4 g/dL (3.5-5.1); Alkaline Phosphatase 96 U/L (38-126); Anion Gap 10 mmol/L (8-16); Aspartate Amino Transferase 28 U/L (14-36); Blood Urea Nitrogen 17 mg/dL (7-17); Calcium 9.3 mg/dL (8.4-10.2); Carbon Dioxide 29 mmol/L (22-30); Chloride 101 mmol/L (98-107); Cholesterol 112 mg/dL (0-200); Estimated Glomerular Filt Rate > 60; Glucose 138 mg/dL (65-110); HDL Direct 37 mg/dL; Potassium 4.5 mmol/L (3.4-5.0); Sodium 140 mmol/L (137-145); Triglycerides 153 mg/dL (<150)
[2021-09-30 10:16] LABS: Hemoglobin A1C 5.8 % (<5.7)
[2021-09-30 10:19] LABS: LDL Cholesterol Direct 46 mg/dL
== END 2021-09-30 09:24 | disposition home or self-care (01) ==
PROVIDERS: PCP Emergency Medicine; Visit Provider Emergency Medicine
DX: E11.9 Type 2 diabetes mellitus without complications (principal); E78.2 Mixed hyperlipidemia; I10 Essential (primary) hypertension
CPT/HCPCS: 36415; 80053; 80061; 83036

== ENCOUNTER 2021-11-23 10:08 | Outpatient (CLI) | payer MEDICARE, SELFPAY ==
--- NOTE | ~2021-11-23 | MM_ITS ---
EXAMINATION: MM screening [facility] BI w murali HISTORY: Screening mammogram TECHNIQUE: Craniocaudal and mediolateral oblique 3-D tomosynthesis images were obtained and synthetic 2-D images were generated. CAD analysis was submitted and interpreted. COMPARISON: 11/02/2020, 10/01/2019 BREAST PARENCHYMAL COMPOSITION: There are scattered areas of fibroglandular density. FINDINGS: There is stable architectural distortion in the upper outer quadrant of the right breast, c onsistent with prior excisional biopsy. There is no evidence of suspicious mass, calcification, or ar chitectural distortion to suggest malignancy in either breast. There has been no suspicious interval change. IMPRESSION: 1. No mammographic evidence of malignancy. 2. Recommend routine screening mammography in one year. BI-RADS Category 2: Benign finding(s). Reviewed, dictated and finalized at location A.
== END 2021-11-23 10:09 | disposition home or self-care (01) ==
LOC: ANHIMG 10:11
PROVIDERS: PCP Emergency Medicine; Visit Provider Emergency Medicine
DX: Z12.31 Encounter for screening mammogram for malignant neoplasm of breast (principal)
CPT/HCPCS: 77063; 77067

== ENCOUNTER 2022-01-07 07:29 | Outpatient (CLI) | payer MEDICARE, SELFPAY ==
[2022-01-07 08:02] LABS: Alanine Aminotransferase 17 U/L (4-35); Albumin Level 4.2 g/dL (3.5-5.1); Alkaline Phosphatase 74 U/L (38-126); Anion Gap 6 mmol/L (8-16); Aspartate Amino Transferase 28 U/L (14-36); Bilirubin,Total 0.9 mg/dL (0.2-1.3); Blood Urea Nitrogen 18 mg/dL (7-17); Calcium 8.9 mg/dL (8.4-10.2); Carbon Dioxide 31 mmol/L (22-30); Chloride 104 mmol/L (98-107); Cholesterol 124 mg/dL (0-200); Estimated Glomerular Filt Rate > 60; Glucose 132 mg/dL (65-110); HDL Direct 39 mg/dL; Potassium 4.1 mmol/L (3.4-5.0); Sodium 141 mmol/L (137-145); Triglycerides 120 mg/dL (<150)
[2022-01-07 08:12] LABS: LDL Cholesterol Direct 52 mg/dL
[2022-01-07 08:29] LABS: Hemoglobin A1C 6.3 % (<5.7)
[2022-01-07 10:28] LABS: Creatinine Urine 79.7 mg/dL
[2022-01-07 10:33] LABS: MALB Creatinine Ratio 14.8 mg/g (0-30); Microalbumin Urine Random 11.8 mg/L (0-16.7)
== END 2022-01-07 07:30 | disposition home or self-care (01) ==
PROVIDERS: PCP Emergency Medicine; Visit Provider Emergency Medicine
DX: E11.9 Type 2 diabetes mellitus without complications (principal); E78.2 Mixed hyperlipidemia; I10 Essential (primary) hypertension
CPT/HCPCS: 36415; 80053; 80061; 82043; 83036

== ENCOUNTER → 2022-02-24 13:48 | Outpatient (CLI) | payer MEDICARE, SELFPAY ==
--- NOTE | ~2022-02-24 | DEXA_ITS ---
Bone Density Report Name: WILLY GRADY Age: 76 Sex: Female Ethnicity: White Date of : 1945 Indication: postmenopausal; screening for osteoporosis; height loss; hysterectomy; Referring Provider: RISSA JACKMAN Study: Bone densitometry was performed. Exam Date: February 24, 2022 Accession number: [id number] Bone Density: Region BMD T-score Z-score Classification AP Spine (L1-L4) 0.899 -1.3 1.1 Osteopenia Femoral Neck (Left) 0.561 -2.6 -0.5 Osteoporosis Total Hip (Left) 0.739 -1.7 0.2 Osteopenia Femoral Neck (Right) 0.612 -2.1 0.0 Osteopenia Total Hip (Right) 0.804 -1.1 0.7 Osteopenia Total Hip Mean 0.772 -1.4 0.5 Osteopenia World Health Organization criteria for BMD impression classify patients as: Normal (T-score at or above -1.0), Osteopenia (T-score between -1.0 and -2.5), or Osteoporosis (T-score at or below -2.5). 10-year Fracture Risk: FRAX not reported because: Some T-score for Spine Total or Hip Total or Femoral Neck at or below -2.5 Clinical Information Provided by Patient: Has the following medical conditions: Hysterectomy Patient maximum height was 63 Menopause Age: 46 No regular weight bearing exercise Does not regularly consume dairy products Drinks caffeinated beverages Onset of menses at age 12 Number of children 2 Impression: The patient has osteoporosis, based on the Left Femoral Neck T-score. Discussion: INCREASED RISK OF FRACTURE. BONE DENSITY IS UNDESIRABLY LOW AT ONE OR MORE SKELETAL SITES, CONSISTENT WITH POSTMENOPAUSAL OSTEOPOROSIS. This patient's lowest T-score meets the World Health Organization's (WHO) criteria for osteoporosis at one or more sites (T-score -2.5 or below). In untreated patients, the risk of osteoporotic fracture increases approximately two-fold for each 1.0 SD decrease in T-score. Low bone density is not the only risk factor for fracture; also consider factors such as patient's age, frailty or poor health, risk of falling, risk of injury, previous osteoporotic fracture, family history of osteoporosis, cigarette smoking, low body weight, etc. Not everyone with low bone mineral density has osteoporosis; osteomalacia and other metabolic bone disorders should also be considered. Patients who have osteoporosis should be evaluated for specific diseases and conditions (secondary causes) that may cause or contribute to bone loss. The [place] [employer] Clinical Endocrinologists (AACE) and National Osteoporosis Foundation (NOF) recommend pharmacologic intervention for all postmenopausal women whose T-score is in this range. The patient should follow a healthful lifestyle (good nutrition with adequate calcium and vitamin D, and appropriate weight-bearing exercise). Follow-Up: Consider a repeat BMD and Vertebral Fracture Assessment (VFA) exam in 2 years or dinesh
== END ==
PROVIDERS: PCP Emergency Medicine; Visit Provider Emergency Medicine
DX: Z78.0 Asymptomatic menopausal state (principal); M85.88 Other specified disorders of bone density and structure, other site; M81.0 Age-related osteoporosis without current pathological fracture; M85.852 Other specified disorders of bone density and structure, left thigh; M85.851 Other specified disorders of bone density and structure, right thigh
CPT/HCPCS: 77080

== ENCOUNTER 2022-06-29 08:42 | Outpatient (CLI) | payer MEDICARE, SELFPAY ==
[2022-06-29 09:10] LABS: Hemoglobin A1C 6.8 % (<5.7)
[2022-06-29 09:14] LABS: Alanine Aminotransferase 20 U/L (6-35); Albumin Level 4.1 g/dL (3.5-5.1); Alkaline Phosphatase 89 U/L (38-126); Anion Gap 10 mmol/L (8-16); Aspartate Amino Transferase 25 U/L (14-36); Bilirubin,Total 0.8 mg/dL (0.2-1.3); Blood Urea Nitrogen 19 mg/dL (7-17); Calcium 8.8 mg/dL (8.4-10.2); Carbon Dioxide 28 mmol/L (22-30); Chloride 102 mmol/L (98-107); Cholesterol 100 mg/dL (0-200); Estimated Glomerular Filt Rate > 60; Glucose 180 mg/dL (65-110); HDL Direct 35 mg/dL; Potassium 3.8 mmol/L (3.4-5.0); Sodium 140 mmol/L (137-145); Triglycerides 126 mg/dL (<150)
[2022-06-29 09:22] LABS: Creatinine Urine 123.2 mg/dL
[2022-06-29 09:24] LABS: LDL Cholesterol Direct 43 mg/dL
[2022-06-29 09:28] LABS: MALB Creatinine Ratio 75.6 mg/g (0-30); Microalbumin Urine Random 93.1 mg/L (0-16.7)
== END 2022-06-29 08:43 | disposition home or self-care (01) ==
PROVIDERS: PCP Emergency Medicine; Visit Provider Emergency Medicine
DX: E78.5 Hyperlipidemia, unspecified (principal); I10 Essential (primary) hypertension; E11.9 Type 2 diabetes mellitus without complications
CPT/HCPCS: 36415; 80053; 80061; 82043; 83036

== ENCOUNTER 2022-08-01 01:03 | Day surgery (SDC) | payer MEDICARE, SELFPAY ==
[2022-07-29 12:09] VITALS: BMI 29.1
[2022-08-01] VITALS (8 sets, daily range): BP systolic 106–140; BP diastolic 53–66; PULSE 54–73; RESP 14–24; TEMP 36.4; O2SAT 95–100
--- NOTE | 2022-08-01 08:30 | ECG_ITS ---
Measurements Intervals [place] Rate: 52 P: 32 [place]: 225 QRS: -34 QRSD: 88 T: 54 QT: 438 QTc: 410 Interpretive Statements SINUS BRADYCARDIA WITH FIRST DEGREE AV BLOCK LEFT AXIS DEVIATION POOR R WAVE PROGRESSION, ANTERIOR LEADS BORDERLINE ST-T WAVE ABNORMALITY- ANTEROLAT/HIGH LAT LEADS ABNORMAL ECG COMPARED TO ECG 08/01/2022 08:54:12 SINUS BRADYCARDIA NOW PRESENT FIRST DEGREE AV BLOCK NOW PRESENT Electronically Signed On 08-01-2022 10:14:49 SALES CONTRACT ADMINISTRATOR by Pato Anderson D.O.
--- NOTE | 2022-08-01 08:30 | ECG_ITS ---
Measurements Intervals [place] Rate: 70 P: [place]: 0 QRS: -36 QRSD: 90 T: 14 QT: 401 QTc: 434 Interpretive Statements ATRIAL FIBRILLATION LEFT AXIS DEVIATION POOR R WAVE PROGRESSION, ANTERIOR LEADS INFERIOR INFARCT, AGE INDETERMINATE BORDERLINE ST-T WAVE ABNORMALITY- HIGH LATERAL LEADS BASELINE ARTIFACT- I, II, V3 ABNORMAL ECG COMPARED TO ECG 07/26/2021 09:26:04 NO SIGNIFICANT CHANGES Electronically Signed On 08-01-2022 9:12:59 POWDER EXPERT by Pato Anderson D.O.
[2022-08-01 09:22] LABS: Anion Gap 9 mmol/L (8-16); Blood Urea Nitrogen 20 mg/dL (7-17); Calcium 9.2 mg/dL (8.4-10.2); Carbon Dioxide 28 mmol/L (22-30); Chloride 103 mmol/L (98-107); Estimated CRCL calculation 61 ml/min; Estimated Glomerular Filt Rate > 60; Glucose 153 mg/dL (65-110); Magnesium 1.4 mg/dL (1.6-2.3); Potassium 4.1 mmol/L (3.4-5.0); Sodium 140 mmol/L (137-145)
--- NOTE | 2022-08-01 09:52 | WPDMODSED ---
Moderate Sedation Note-Pt Data Patient Data Diagnosis: Recurrent atrial fibrillation Present Complaint: Exertional dyspnea Procedure to be performed/Plan: DC cardioversion Allergies Allergy/AdvReac Type Severity Reaction Status Date / Time No Known Allergies Allergy Verified 08/01/22 09:00 Home Medications Medication Instructions Recorded Confirmed Type lancets (Accu-Chek Multiclix #50 ea 09/06/19 12/13/21 History Lancet) latanoprost 0.005 % eye drops 1 drop ophthalmic (eye) HS 09/06/19 07/29/22 History metoprolol succinate 100 mg 100 mg PO QAM 09/06/19 07/29/22 History tablet,extended release 24 hr blood sugar diagnostic (Contour #10 ea 01/24/20 12/13/21 History Test Strips) brimonidine 0.1 % eye drops 1 drop ophthalmic (eye) BID 01/24/20 07/29/22 History (Alphagan P) niacin 500 mg capsule,extended 500 mg PO BID 01/24/20 07/29/22 History release rivaroxaban 20 mg tablet (Xarelto) 20 mg PO HS #30 tabs 12/17/21 07/29/22 Rx alendronate 70 mg tablet See Rx Instructions .Route 01/26/22 07/29/22 Rx .COMPLEX #12 tabs albuterol sulfate 90 mcg/actuation 1 inh inhalation Q4H PRN Dyspnea 02/14/22 07/29/22 Rx aerosol inhaler (ProAir HFA) #25.5 grams lisinopril 2.5 mg tablet 2.5 mg PO QAM #90 tabs 05/23/22 08/01/22 Rx atorvastatin 40 mg tablet 40 mg PO DAILY #90 tabs 06/14/22 07/29/22 Rx metformin 500 mg tablet 500 mg PO BID #270 tabs 07/05/22 07/29/22 Rx sotalol 80 mg tablet 80 mg PO BID 07/29/22 08/01/22 History Current Medications: Active Medications Sodium Chloride (Normal Saline Iv) 1,000 mls @ 30 mls/hr IV CONT .Q24H CY Sedation/Anesthesia: No previous sedation/anesthesia problems (including family history). [facility] Past Medical History Medical History Afib Closed fracture of one rib of left side with routine healing Diabetes mellitus Elevated alkaline phosphatase level Fatigue HLD (hyperlipidemia) HTN (hypertension) Left knee pain Post-menopausal Quadriceps weakness Vitamin D deficiency Surgical History Surgical History S/P total knee arthroplasty Family History Family History Other Diabetes mellitus Heart disease Hypertension S/P total knee arthroplasty Social History Social History Smoking status: Unknown if ever smoked Second hand tobacco smoke exposure: Yes Alcohol intake: former Substance use: never Substance use type: does not use Living arrangements: with family Additional living arrangements comments: Gender identity (if verbalized by the patient): Female Spiritual care concerns: No Mod Sed Physical Exam Physical Exam Pre Procedural Exam: Normal: Appearance, Nose, Neck, Throat, Airway, Lungs, Heart Size, Neuro Exam and Extremities and Variation: Heart Rate and Heart Rhythm (Irregularly irregular) Hours since solid foods: 12 Hours since liquid intake: 12 Mallampati Classification: class II Internal Medicine - PN: Obj Da Vital Signs Vital Signs: Vital Signs - 24 hr 08/01/22 09:01 Temperature 36.4 C L Pulse Rate 72 Respiratory Rate 15 Blood Pressure 118/62 Pulse Oximetry 97 Oxygen Delivery Room Air Meds/Results Medications: Active Medications Generic Name Dose Route Start Last Admin Trade Name Freq PRN Reason Stop Dose Admin Sodium Chloride 1,000 mls @ 30 mls/hr 08/01/22 08:30 Normal Saline Iv IV CONT .Q24H CY Labs CBC & Chem 7: 08/01/22 08:59 Labs: Laboratory Results - last 24 hr 08/01/22 08:59 Sodium 140 Potassium 4.1 Chloride 103 Carbon Dioxide 28 Anion Gap 9 BUN 20 H Creatinine 0.60 L Estim Creat Clear Calc 61 Estimated GFR > 60 Glucose 153 H Calcium 9.2 Magnesium 1.4 L ASA Classification/Sedation ASA Classificat
--- NOTE | 2022-08-01 10:08 | WPDCARDPROC ---
Cardiac Cath Procedure Note Date of procedure:: 08/01/22 Performing physician:: Hong Argueta MD Indication:: Recurrent atrial fibrillation Brief clinical history:: This is a 77-year-old woman with a prior history of atrial fibrillation with cardioversion 3 years ago. She presents with a persistent recurrence of atrial fibrillation and an attempt is being made to once again restore sinus rhythm. The patient has been placed medical therapy with sotalol as well. Procedure Procedure performed:: DC cardioversion Sedation/Medication given:: Propofol 40 mg Estimated blood loss:: No blood loss Procedure note:: Patient was brought to the cardiac catheterization lab holding area in the postabsorptive state. The chest was prepared and defibrillator patches were placed in the AP position. Preop ECG demonstrates persistent atrial fibrillation. She then was sedated with propofol 1 dose of 40 mg provided excellent sedation in this relatively small lady. She was counter shocked with 200 joules in a synchronized fashion x1 restored normal sinus rhythm. Findings:: As above Conclusion:: Successful uncomplicated DC cardioversion terminating atrial fibrillation, restoring sinus rhythm using 200 joules x1 shock. Hong Argueta MD [facility]
--- NOTE | 2022-08-01 11:38 | SUR.PHASEII ---
discharge instructions given to patient and . iv d/c tip intact. patient informed of follow up appointments. all questions and concerns addressed. patient able to ambulate around room to get dressed and use the br. patient take via wheel chair to personal vehicle, driving home.
== END 2022-08-01 11:40 | disposition home or self-care (01) ==
PROVIDERS: PCP Emergency Medicine; Visit Provider Specialist
PROC: 5A2204Z Restoration of Cardiac Rhythm, Single (ICD-10-PCS; principal; 2022-08-01 10:00)
DX: I48.0 Paroxysmal atrial fibrillation (principal); I10 Essential (primary) hypertension; E78.5 Hyperlipidemia, unspecified; E55.9 Vitamin D deficiency, unspecified; Z79.51 Long term (current) use of inhaled steroids; Z79.01 Long term (current) use of anticoagulants; Z79.84 Long term (current) use of oral hypoglycemic drugs; E11.9 Type 2 diabetes mellitus without complications
CPT/HCPCS: 36415; 80048; 83735; 92960; J2704; J7030

== ENCOUNTER 2022-12-14 08:00 | Outpatient (CLI) | payer MEDICARE, SELFPAY ==
[2022-12-14 08:34] LABS: Alanine Aminotransferase 18 U/L (6-35); Albumin Level 4.2 g/dL (3.5-5.1); Alkaline Phosphatase 74 U/L (38-126); Anion Gap 6 mmol/L (8-16); Aspartate Amino Transferase 24 U/L (14-36); Blood Urea Nitrogen 24 mg/dL (7-17); Calcium 9.2 mg/dL (8.4-10.2); Carbon Dioxide 32 mmol/L (22-30); Chloride 103 mmol/L (98-107); Cholesterol 114 mg/dL (0-200); Estimated Glomerular Filt Rate > 60; Glucose 115 mg/dL (65-110); HDL Direct 34 mg/dL; Potassium 3.9 mmol/L (3.4-5.0); Sodium 141 mmol/L (137-145); Triglycerides 166 mg/dL (<150)
[2022-12-14 08:46] LABS: LDL Cholesterol Direct 46 mg/dL
[2022-12-14 08:55] LABS: Hemoglobin A1C 6.2 % (<5.7)
[2022-12-14 09:24] LABS: Creatinine Urine 192.5 mg/dL; Microalbumin Urine Random 17.4 mg/L (0-16.7)
== END 2022-12-14 08:01 | disposition home or self-care (01) ==
PROVIDERS: PCP Emergency Medicine; Visit Provider Emergency Medicine
DX: E11.9 Type 2 diabetes mellitus without complications (principal); I10 Essential (primary) hypertension
CPT/HCPCS: 36415; 80053; 80061; 82043; 83036

== ENCOUNTER 2022-12-29 09:43 | Outpatient (CLI) | payer MEDICARE, SELFPAY ==
--- NOTE | ~2022-12-29 | MM_ITS ---
EXAMINATION: MM screening [facility] BI w murali HISTORY: Screening mammogram TECHNIQUE: Craniocaudal and mediolateral oblique 3-D tomosynthesis images were obtained and synthetic 2-D images were generated. CAD analysis was submitted and interpreted. COMPARISON: 11/23/2021, 11/02/2020, 10/01/2019 BREAST PARENCHYMAL COMPOSITION: There are scattered areas of fibroglandular density. FINDINGS: Chronic architectural distortion in the upper outer quadrant of the right breast is consist ent with history of prior benign excisional biopsy. No suspicious mass, calcification, or architectur al distortion are identified in either breast to suggest malignancy. There has been no suspicious int erval change. IMPRESSION: 1. No mammographic evidence of malignancy. 2. Recommend routine screening mammography in one year. BI-RADS Category 2: Benign finding(s). Reviewed, dictated and finalized at location A.
== END 2022-12-29 09:44 | disposition home or self-care (01) ==
PROVIDERS: PCP Emergency Medicine; Visit Provider Emergency Medicine
DX: Z12.31 Encounter for screening mammogram for malignant neoplasm of breast (principal)
CPT/HCPCS: 77063; 77067

== ENCOUNTER 2023-06-20 10:07 | Outpatient (CLI) | payer MEDICARE, SELFPAY ==
[2023-06-20 11:03] LABS: Hemoglobin A1C 6.4 % (<5.7)
[2023-06-20 11:09] LABS: Alanine Aminotransferase 20 U/L (6-35); Albumin Level 4.6 g/dL (3.5-5.1); Alkaline Phosphatase 66 U/L (38-126); Anion Gap 8 mmol/L (8-16); Aspartate Amino Transferase 31 U/L (14-36); Blood Urea Nitrogen 24 mg/dL (7-17); Calcium 9.3 mg/dL (8.4-10.2); Carbon Dioxide 31 mmol/L (22-30); Chloride 100 mmol/L (98-107); Cholesterol 120 mg/dL (0-200); Estimated Glomerular Filt Rate > 60; Glucose 130 mg/dL (65-110); HDL Direct 35 mg/dL; Potassium 4.2 mmol/L (3.4-5.0); Sodium 139 mmol/L (137-145); Triglycerides 145 mg/dL (<150)
[2023-06-20 11:20] LABS: LDL Cholesterol Direct 58 mg/dL
[2023-06-20 11:20] LABS: MALB Creatinine Ratio 34.9 mg/g (0-30); Microalbumin Urine Random 27.2 mg/L (0-16.7)
== END 2023-06-20 10:08 | disposition home or self-care (01) ==
PROVIDERS: PCP Emergency Medicine; Visit Provider Emergency Medicine
DX: E11.9 Type 2 diabetes mellitus without complications (principal)
CPT/HCPCS: 36415; 80053; 80061; 82043; 83036

== ENCOUNTER 2023-10-06 00:36 | Day surgery (SDC) | payer MEDICARE, SELFPAY ==
[2023-10-05 12:06] VITALS: BMI 29.3
[2023-10-06] VITALS (8 sets, daily range): BP systolic 125–156; BP diastolic 58–74; PULSE 65–84; RESP 13–17; TEMP 36.6; O2SAT 98–100; BMI 29.3
--- NOTE | 2023-10-06 09:00 | ECG_ITS ---
Measurements Intervals [place] Rate: 80 P: [place]: 0 QRS: -31 QRSD: 90 T: 20 QT: 400 QTc: 464 Interpretive Statements ATRIAL FIBRILLATION PATTERN CONSISTENT WITH PULMONARY DISEASE INFERIOR INFARCT, AGE INDETERMINATE ABNORMAL ECG COMPARED TO ECG 08/01/2022 10:11:48 ATRIAL FIBRILLATION NOW PRESENT Electronically Signed On 10-06-2023 9:09:54 MENTAL HEALTH NURSE by Pato Anderson D.O.
[2023-10-06 09:30] LABS: Anion Gap 9 mmol/L (8-16); Blood Urea Nitrogen 16 mg/dL (7-17); Calcium 9.1 mg/dL (8.4-10.2); Carbon Dioxide 28 mmol/L (22-30); Chloride 101 mmol/L (98-107); Estimated CRCL calculation 60 ml/min; Estimated Glomerular Filt Rate > 60; Glucose 164 mg/dL (65-110); Magnesium 1.3 mg/dL (1.6-2.3); Potassium 4.5 mmol/L (3.4-5.0); Sodium 138 mmol/L (137-145)
--- NOTE | 2023-10-06 11:00 | ECG_ITS ---
Measurements Intervals [place] Rate: 65 P: 32 [place]: 220 QRS: -32 QRSD: 91 T: 10 QT: 458 QTc: 477 Interpretive Statements SINUS RHYTHM WITH SINUS ARRHYTHMIA WITH FIRST DEGREE AV BLOCK LEFT AXIS DEVIATION PATTERN CONSISTENT WITH PULMONARY DISEASE INFERIOR INFARCT, AGE INDETERMINATE BORDERLINE T WAVE ABNORMALITY- ANTERIOR LEADS ABNORMAL ECG COMPARED TO ECG 10/06/2023 09:02:32 SINUS RHYTHM NOW PRESENT SINUS ARRHYTHMIA NOW PRESENT FIRST DEGREE AV BLOCK NOW PRESENT Electronically Signed On 10-06-2023 12:00:52 FURNACE BRAZER by Pato Anderson D.O.
--- NOTE | 2023-10-06 11:06 | WPDMODSED ---
Moderate Sedation Note-Pt Data Patient Data Diagnosis: recurrent atrial fibrillation Present Complaint: this is a 78-year-old lady with a history of atrial fibrillation. She was seen in the office several days ago with a recurrence of her arrhythmia that was coincident with being off of her antiarrhythmic medication for a short time. An attempt at restoring sinus rhythm has again been recommended. She is taking Xarelto and sotalol with no recent interruption Procedure to be performed/Plan: DC cardioversion Allergies Allergy/AdvReac Type Severity Reaction Status Date / Time No Known Allergies Allergy Verified 10/06/23 09:00 Home Medications Medication Instructions Recorded Confirmed Type lancets (Accu-Chek Multiclix #50 ea 09/06/19 06/27/23 History Lancet) latanoprost 0.005 % eye drops 1 drop ophthalmic (eye) HS 09/06/19 10/06/23 History blood sugar diagnostic (Contour #10 ea 01/24/20 06/27/23 History Test Strips) brimonidine 0.1 % eye drops 1 drop ophthalmic (eye) BID 01/24/20 10/06/23 History (Alphagan P) niacin 500 mg capsule,extended 500 mg PO BID 01/24/20 10/06/23 History release albuterol sulfate 90 mcg/actuation 1 inh inhalation Q4H PRN Dyspnea 02/14/22 10/05/23 Rx aerosol inhaler (ProAir HFA) #25.5 grams sotalol 80 mg tablet 80 mg PO BID 07/29/22 10/06/23 History metformin 500 mg tablet 500 mg PO BID #200 tabs 12/09/22 10/05/23 Rx fluticasone propionate 50 2 spray intranasal DAILY #16 grams 05/09/23 10/05/23 Rx mcg/actuation nasal spray,suspension (Flonase Allergy Relief) alendronate 70 mg tablet 70 mg PO WEEKLY 10/05/23 10/05/23 History atorvastatin 40 mg tablet 40 mg PO HS 10/05/23 History lisinopril 2.5 mg tablet 2.5 mg PO DAILY 10/05/23 10/06/23 History rivaroxaban 20 mg tablet (Xarelto) 20 mg PO HS 10/05/23 10/06/23 History Current Medications: Active Medications Sodium Chloride (Normal Saline Iv) 1,000 mls @ 30 mls/hr IV CONT .Q24H CY Sedation/Anesthesia: No previous sedation/anesthesia problems (including family history). [facility] Past Medical History Medical History Afib Closed fracture of one rib of left side with routine healing Diabetes mellitus Elevated alkaline phosphatase level Fatigue HLD (hyperlipidemia) HTN (hypertension) Left knee pain Post-menopausal Quadriceps weakness Vitamin D deficiency Surgical History Surgical History S/P total knee arthroplasty Family History Family History Other Diabetes mellitus Heart disease Hypertension S/P total knee arthroplasty Social History Social History Smoking status: Never smoker Second hand tobacco smoke exposure: Yes () Alcohol intake: current Alcohol use details: 2 drinks per year Substance use: never Substance use type: does not use Lack of Transportation: No Lack of Food: Never True Current Housing: I Have Housing Concerned About Future Housing: No Difficulty Paying Gas/Electric Bills: No Difficulty Paying for Meds: No Currently Unemployed: No Education: High School Diploma/GED Difficulty w/ Childcare or Family Care: No Living arrangements: with family Additional living arrangements comments: Occupation/Education: retired Gender identity (if verbalized by the patient): Female Spiritual care concerns: No Mod Sed Physical Exam Physical Exam Pre Procedural Exam: Normal: Appearance, Neck, Throat, Airway, Lungs, Heart Size, Neuro Exam and Extremities and Variation: Heart Rate and Heart Rhythm ( irregularly irregular) Hours since solid foods: 12 Hours since liquid intake: 12 Mallampati Classification: class II Internal Medicine - PN: Obj Da Vital Signs Vital Signs: Vital Signs - 24 hr 10/06/23 09:03 Te
--- NOTE | 2023-10-06 11:18 | WPDCARDPROC ---
Cardiac Cath Procedure Note Date of procedure:: 10/06/23 Performing physician:: Hong Argueta MD Indication:: recurrent atrial fibrillation Brief clinical history:: this is a 78-year-old woman with a history of paroxysmal atrial fibrillation who has had a recent recurrence of her atrial fib that appears to be coincident with a lapse in her antiarrhythmic regimen. And a 3rd attempt at restoring sinus rhythm electrically has been recommended and scheduled for this morning Procedure Procedure performed:: DC cardioversion Sedation/Medication given:: intravenous propofol 40 mg IV push Estimated blood loss:: none Procedure note:: patient was brought to the medical lab technologist holding where she was in the supine position in the postabsorptive state. Defibrillator patches were placed in the AP position. She then was DC cardioverted with 200 joules in synchronized fashion restoring normal sinus rhythm. Findings:: As above Conclusion:: successful uncomplicated DC cardioversion of atrial fib restoring sinus rhythm using 200 joules x1 shock. Hong Argueta MD [facility]
== END 2023-10-06 12:20 | disposition home or self-care (01) ==
PROVIDERS: PCP Emergency Medicine; Visit Provider Specialist
PROC: 5A2204Z Restoration of Cardiac Rhythm, Single (ICD-10-PCS; principal; 2023-10-06 11:00)
DX: I48.0 Paroxysmal atrial fibrillation (principal); E11.9 Type 2 diabetes mellitus without complications; E78.5 Hyperlipidemia, unspecified; I10 Essential (primary) hypertension; Z79.51 Long term (current) use of inhaled steroids; Z79.84 Long term (current) use of oral hypoglycemic drugs; Z79.01 Long term (current) use of anticoagulants
CPT/HCPCS: 36415; 80048; 83735; 92960; J2704; J7030

== ENCOUNTER 2023-12-21 08:00 | Outpatient (CLI) | payer MEDICARE, SELFPAY ==
[2023-12-21 09:09] LABS: Alanine Aminotransferase 20 U/L (6-35); Albumin Level 4.3 g/dL (3.5-5.1); Alkaline Phosphatase 66 U/L (38-126); Anion Gap 8 mmol/L (4-12); Aspartate Amino Transferase 31 U/L (14-36); Blood Urea Nitrogen 20 mg/dL (7-17); Calcium 9.7 mg/dL (8.4-10.2); Carbon Dioxide 30 mmol/L (22-30); Chloride 102 mmol/L (98-107); Cholesterol 110 mg/dL (0-200); Estimated Glomerular Filt Rate > 60; Glucose 139 mg/dL (65-110); HDL Direct 32 mg/dL; Sodium 140 mmol/L (137-145); Triglycerides 212 mg/dL (<150)
[2023-12-21 09:20] LABS: LDL Cholesterol Direct 54 mg/dL
[2023-12-21 10:18] LABS: Vitamin D 25 Hydroxy 28.3 ng/mL
[2023-12-21 10:50] LABS: Hemoglobin A1C 6.6 % (<5.7)
== END 2023-12-21 08:01 | disposition home or self-care (01) ==
PROVIDERS: PCP Emergency Medicine; Visit Provider Emergency Medicine
DX: E78.5 Hyperlipidemia, unspecified (principal); I10 Essential (primary) hypertension; E55.9 Vitamin D deficiency, unspecified
CPT/HCPCS: 36415; 80053; 80061; 82306; 83036

== ENCOUNTER 2024-05-14 14:35 | Outpatient (CLI) | payer MEDICARE, SELFPAY ==
--- NOTE | ~2024-05-14 | XR_ITS ---
EXAMINATION: XR lumbar spine 6V w bending DATE: 05/14/2024 15:04 INDICATION: Right-sided low back pain. TECHNIQUE: 7 views of lumbar spine including flexion and extension and standing views were obtained. COMPARISON: None. FINDINGS: There is a least 14 degrees dextroscoliosis of thoracolumbar spine. There is 3 mm retrolist hesis of L1 on L2 and L2 on L3. Vertebral body heights are normal. There is moderately decreased disc height at T12-L1 and L1-L2, mildly decreased disc height at L2-L3, severely decreased disc height at L3-L4, and moderately decreased disc height at L4-L5. There is multilevel severe facet joint osteoar thritis. There is no abnormal motion on flexion or extension. IMPRESSION: 1. Severe lumbar spondylosis. 2. Thoracolumbar dextroscoliosis. Reviewed, dictated and finalized at location A.
--- NOTE | ~2024-05-14 | XR_ITS ---
EXAMINATION: XR sacroiliac joints min 3V DATE: 05/14/2024 15:04 INDICATION: Right-sided low back pain. TECHNIQUE: 3 views of the sacroiliac joints were obtained. COMPARISON: Lumbar spine MRI 10/10/2014 FINDINGS: There is thoracolumbar dextroscoliosis and severe spondylosis. There is mild osteoarthritis of the sacroiliac joints. IMPRESSION: 1. Mild osteoarthritis of the sacroiliac joints. No evidence of inflammatory arthropathy. Reviewed, dictated and finalized at location A. IMPRESSION: 1. Mild osteoarthritis of the sacroiliac joints. No evidence of inflammatory ar thropathy.
== END 2024-05-14 14:36 | disposition home or self-care (01) ==
LOC: ANHIMG 14:39
PROVIDERS: PCP Emergency Medicine; Visit Provider Anesthesiology Pain Medicine
DX: M47.817 Spondylosis without myelopathy or radiculopathy, lumbosacral region (principal); M47.816 Spondylosis without myelopathy or radiculopathy, lumbar region; M46.1 Sacroiliitis, not elsewhere classified; M41.85 Other forms of scoliosis, thoracolumbar region; G89.29 Other chronic pain
CPT/HCPCS: 72114; 72202

== ENCOUNTER 2024-05-17 12:57 | Outpatient (CLI) | payer MEDICARE, SELFPAY ==
--- NOTE | ~2024-05-17 | MM_ITS ---
EXAMINATION: MM screening katherin BI w murali HISTORY: Screening TECHNIQUE: Craniocaudal and mediolateral oblique 3-D tomosynthesis images were obtained and synthetic 2-D images were generated. CAD analysis was submitted and interpreted. COMPARISON: Comparison to multiple prior studies sequentially, with oldest reviewed study dated 10/01. BREAST PARENCHYMAL COMPOSITION: Not dense: There are scattered areas of fibroglandular density. FINDINGS: There is no evidence of suspicious mass, calcification, or architectural distortion to sugg est malignancy in either breast. There has been no suspicious interval change. IMPRESSION: 1. No mammographic evidence of malignancy. 2. Recommend routine screening mammography in one year. BI-RADS Category 1: Negative Reviewed, dictated and finalized at location B.
== END 2024-05-17 12:58 | disposition home or self-care (01) ==
PROVIDERS: PCP Emergency Medicine; Visit Provider Emergency Medicine
DX: Z12.31 Encounter for screening mammogram for malignant neoplasm of breast (principal)
CPT/HCPCS: 77063; 77067

== ENCOUNTER 2024-06-22 08:44 | Outpatient (CLI) | payer MEDICARE, SELFPAY ==
[2024-06-22 09:56] LABS: Alanine Aminotransferase 23 U/L (6-35); Albumin Level 4.5 g/dL (3.5-5.1); Alkaline Phosphatase 64 U/L (38-126); Aspartate Amino Transferase 33 U/L (14-36); Bilirubin,Total 1.3 mg/dL (0.2-1.3); Blood Urea Nitrogen 36 mg/dL (7-17); Calcium 9.5 mg/dL (8.4-10.2); Carbon Dioxide 29 mmol/L (22-30); Chloride 100 mmol/L (98-107); Cholesterol 141 mg/dL (0-200); Estimated Glomerular Filt Rate > 60; Glucose 118 mg/dL (65-110); HDL Direct 41 mg/dL; Triglycerides 177 mg/dL (<150)
[2024-06-22 10:01] LABS: LDL Cholesterol Direct 52 mg/dL
[2024-06-22 10:02] LABS: Anion Gap 11 mmol/L (4-12); Potassium 4.3 mmol/L (3.4-5.0); Sodium 140 mmol/L (137-145)
[2024-06-22 10:32] LABS: Creatinine Urine 95.7 mg/dL
[2024-06-22 10:35] LABS: MALB Creatinine Ratio 6.4 mg/g (0-30); Microalbumin Urine Random 6.1 mg/L (0-16.7)
[2024-06-22 11:26] LABS: Hemoglobin A1C 7.4 % (<5.7)
== END 2024-06-22 08:45 | disposition home or self-care (01) ==
PROVIDERS: PCP Emergency Medicine; Visit Provider Emergency Medicine
DX: E55.9 Vitamin D deficiency, unspecified (principal); E78.5 Hyperlipidemia, unspecified; E11.9 Type 2 diabetes mellitus without complications
CPT/HCPCS: 36415; 80053; 80061; 82043; 82306; 83036

== ENCOUNTER 2024-12-21 07:31 | Outpatient (CLI) | payer MEDICARE, SELFPAY ==
--- OUTSIDE RECORDS SUMMARY | 2024-12-21 07:34 | XMS_ITS | Continuity of Care Document ---
Author Organization [facility] Address [address] [place] [address] Phone Care Team Providers Care Electrician Machine Shop Name Role Phone Yeny Soto Unavailable Unavailable Procedures Procedure Date Office/outpatient Visit, [...] Copied on Encounter Office/outpat ient Visit, Est [facility], [id number] [place] [address] [address], [place], [place], [id number], [place] tel:[phone] [facility] No Information 0 Brittany Saini. [address] , [address], [place], [address], [place]. tel:[phone] Referring Provider: Yeny Mccray, [address], [place], [place], [facility]. tel:[phone] [facility], [address] [place] [address] [address], [place], [place], [id number], [place] tel:[phone] [facility] No Information 9 Brittany Saini. [address] , [address], [place], [place], [facility], [place]. tel:[phone] Referring Provider: Yeny Mccray, [address], [place], [facility]. tel:[phone] Office/outpat ient Visit, [facility], [address] [place] [address] [address], [place], [place], [id number], tel:[phone] [facility] [place] No Information 9 Brittany Saini. [address] , [address], [place], [place], [facility], [place]. tel:[phone] Referring Provider: Yeyn Mccray, [address] [facility] [address], [place], [facility]. tel:[phone] Office/outpat ient Visit, [facility], [address] [place] [address] [address], [place], [place], [id number], [place] tel:[phone] [facility] No Information 0 200 9 Brittany [address] [facility] [address] , [address], [place], [place], [facility], [place]. tel:[phone] [facility], [address] [place] [address] [address], [place], [place], [id number], [place] tel:[phone] [facility] No Information 200 8 Brittany Saini. [address] [facility] , [address], [place], [facility], [place]. tel:[phone] Referring Provider: Yeny Mccray [address], [place], [facility]. tel:[phone] Office/outpat ient Visit, Est [facility], [address] [place] [address] [address], [place], [place], [id number], [place] tel:[phone] [facility] No Information Mar-0 6-200 8 Brittany Saini. [address] , [address], [place], [place], [facility], [place]. tel:[phone] [facility], [address] [place] [address] [address], [place], [place], [id number], [place] tel:[phone] [facility] No Information Oct-1 1-200 7 Brittany Goodwin [address] , [address], [place], [place], [facility], [place]. tel:[phone] [facility], [address] [place] [address] [address], [place], [place], [id number], [place] tel:[phone] [facility] No Information Sep-1 3-200 7 Brittany [address] [facility] , [address], [place], [facility], [place]. tel:[phone] [facility], [address] [place] [address] [address], [place], [place], [id number], [place] tel:[phone] [facility] No Information Sep-0 6-200 7 Brittany Goodwin [address] , [address], [place], [address], [place]. tel:[phone] [facility], [address], [place], [place], [id number], [place] tel:[phone] [facility] No Information Sep-0 5-200 7 Brittany Goodwin [address] , [address], [place], [facility], [place]. tel:[phone] [facility], [address], [place], [place], [id number], tel:[phone] [facility] No Information 200 7 Brittany Saini. [address] [facility] [address] , [address], [place], [facility], . tel:[phone] Referring Provider: [address] [facility] [address], [place], [facility]. tel:[phone] Office/outpat ient Visit, [facility], [address], [place], [place], [id number], tel:[phone] [facility] No Information 7 Brittany Goodwin [address] [facility] [address] , [address], [place], [place], [facility], . tel:[phone] Referring Provider: [address] [facility] [address], [place], [facility]. tel:[phone] Family History Family Member Type Diagnosis Age At Onset No Information Payers Payer name Insurance type Covered green party ID Authoriza tion(s) No Information Social History [...]
--- OUTSIDE RECORDS SUMMARY | 2024-12-21 07:35 | XMS_ITS | Clinical Summary ---
Author Organization [facility] [address] Address [address] [place] [address] Care Team Providers Care Quality Assurance Clerk Name Role Phone Hong Slater MD Primary Care Provide r Allergies No known active allergies Medications atorvastatin (LIPITOR) 40 mg tablet take 1 by Oral route every day 0 1 Active niacin (NIASPAN) 500 mg tablet take 1 Tablet by oral route every day 0 0 4 Active lisinopril (PRINIVIL,ZESTRIL ) 2.5 mg tablet take 1 tablet by oral route every day 0 0 4 Active alendronate (FOSAMAX) 70 mg tablet take 1 tablet by oral route every week in the morning, at least 30 min before first food, beverage, or medication of day 0 0 5 Active latanoprost (XALATAN) 0.005 % ophthalmic solution 1 drop nightly Activ e brimonidine (ALPHAGAN P) 0.1 % drops Active albuterol HFA (PROVENTIL HFA,VENTOLIN HFA,PROAIR HFA) 90 mcg/actuation inhaler 1 9 Active rivaroxaban (Xarelto) 20 mg tabletIndications :New onset atrial fibrillation (HCC) Take 1 tablet (20 mg total) by mouth daily 180 tablet 0 Active metFORMIN (GLUCOPHAGE) 500 mg tablet Take 1 tablet (500 mg total) by mouth 2 (two) times a day 9 Active icosapent ethyL (VASCEPA) 1 gram capsule Take 2 capsules (2 g total) by mouth 2 (two) times a day Active fenofibrate (FENOGLIDE) 40 mg tablet Take by mouth daily Active [id number]-[id number]-T mfolate-algal 27 mg iron-1.13 mg-581.92 mg capsule Take by mouth Active furosemide (LASIX) 20 mg tablet Take 1 tablet (20 mg total) by mouth daily 4 Active sotaloL (BETAPACE) 80 mg tablet Take 1 tablet by mouth twice daily 180 tablet 1 5 Active Active Problems Problem Noted Date Diagnosed Date Paroxysmal atrial fibrillation 10/23/2018 Chronic anticoagulation 09/14/2018 Atrial premature contractions 11/07/2017 Diabetes mellitus 06/10/2015 Overview (12/16/2016): Diabetes Encounters Date Type Department Care Team Description 10/15/2024 11:30 AM CONTINUOUS DRIER OPERATOR Office Visit [facility] [address] [place] [address] Hong Argueta MD Paroxysmal atrial fibrillation (HCC) (Primary Dx) from Last 3 Months Surgical History Surgery Date Site/Laterality Comments OTHER SURGICAL HISTORY rright knee arthroscopy Medical History Medical History Date Comments Hypertension Hypertension Hx Other Medical Diabetes Type I I Hypercholesterolemia High choles terol Adiposity obesity Hx Other Medical Paroxysmal atri al tachycardia Hx Other Medical hx symptomatic PVC's/PAC's Family History Medical History Relation Name Comments Heart attack Brother 2 Myocardial Infa rction; Cause of : Myocardial Infarction Heart attack Father Myocardial Infa rction; Heart attack Mother Myocardial Infa rction; Relation Name Status Comments Brother 1 Brother 2 Father Alive Mother Alive Social History Tobacco Use Types Packs/Day Years Used Date Smoking Tobacco: Never Smokeless Tobacco: Never Tobacco Cessation:Counseling Given: Not Answered Alcohol Use Standard Drinks/Week Comments No 0 (1 standard drink = 0.6 oz pur e alcohol) Comments Unknown Sex and Gender Information Value Date Recorded Sex Assigned at Not on file Legal Sex Female 3:07 PM CONTINUOUS DRIER OPERATOR Gender Identity Not on file Sexual Orientation Not on file Obstetrics History Last Filed Vital Signs Vital Sign Reading Time Taken Comments Blood Pressure 118/68 10/15/2024 11:06 AM CONTINUOUS DRIER OPERATOR Pulse 96 10/15/2024 11:06 AM CONTINUOUS DRIER OPERATOR Temperature - - Respiratory Rate - - Oxygen Saturation 99% 10/15/2024 11:06 AM CONTINUOUS DRIER OPERATOR Inhaled Oxygen Concentration - - Weight 70.4 kg (155 lb 3.2 oz) 10/15/2024 11:06 AM CONTINUOUS DRIER OPERATOR Height 152.4 cm (5') 10/15/2024 11:06 AM CONTINUOUS DRIER OPERATOR Body Mass Index 30.31 10/15/2024 11:06 AM CONTINUOUS DRIER OPERATOR Plan of Treatment Health Maintenance Due Date Last Done Comments Albumin Creatinine Ratio, Urine 1946 Depression Screening 1946 Fall Risk Assessment 1946 Hemoglobin A1C 1946 Hepatitis C Screening 1946 Osteoporosis Screening-Bone Density Scan 1946 Dilated Eye Exam 1946 Foot Exam 1946 Hepatitis B Screening 1964 Zoster Vaccine (1 of 2) 1996 Well Visit 65+ 2011 Pneumococcal vaccine 65+ (2 of 2 - PPSV23) 09/12/2018 07/18/2018 eGFR 08/16/2019 08/16/2018 Lipid Panel 01/27/2022 01/27/2021, 0801/2020, 11/14/2018, Additional history exists Influenza Vaccine (Season Ended) 2025 09/02/20, 07/18/2018 DTaP/Tdap/Td Vaccine (2 - Td or Tdap) 02/15/2026 02/16/2016 Procedures Procedure Name Priority Date/Time Associated Diagnosis Comments LIPID PANEL Routine 01/27/2021 8:56 AM CDT BASIC METABOLIC PANEL Routine 08/16/2018 12:02 PM CONTINUOUS DRIER OPERATOR New onset atrial fibrillation (HCC) from Last 3 Months or Most Recently Relevant to Health Maintenance Results * (ABNORMAL) Lipid panel (01/27/2021 8:56 AM CDT) SCRIBED Cholesterol, Total 119 0 - 200 EXTERNAL LAB SCRIBED HDL 36(A) 40 - 100 EXTERNAL LAB SCRIBED LDL 57 0 - 100 EXTERNAL LAB SCRIBED Triglycerides 191(A) 0 - 150 EXTERNAL LAB Blood specimen (specimen) Historical Provider LAB BLOOD ORDERABLES Edit ed Result - Final EXTERNAL LAB * (ABNORMAL) Basic metabolic panel (08/16/2018 12:02 PM CONTINUOUS DRIER OPERATOR) Glucose 100(H) 65 - 99 mg/dL [facility] [place] Comment: Fasting reference interval For someone without known diabetes, a glucose value between 100 and 125 mg/dL is consistent with prediabetes and should be confirmed with a follow-up test. BUN 18 7 - 25 mg/dL [facility] [place] Creatinine 0.69 0.60 - 0.93 mg/dL [facility] [place] Comment: For patients >49 years of age, the reference limit for Creatinine is approximately 13% higher for people identified as -Vietnamese. eGFR NON-AFR. TRISTANIAN 87 > OR = 60 mL/min/1 .73m2 [facility] [place] EGFR 101 > OR = 60 mL/min/1 .73m2 [facility] [place] BUN/creat ratio NOT APPLICABLE 6 - 22 (calc) [facility] [place] Sodium 144 135 - 146 mmol/L [facility] [place] Potassium, pl 4.3 3.5 - 5.3 mmol/L [facility] [place] Chloride 105 98 - 110 mmol/L [facility] [place] CO2 29 20 - 32 mmol/L [facility] [place] Calcium 9.4 8.6 - 10.4 mg/dL [facility] [place] Blood specimen (specimen) 08/16/2018 12:02 PM CONTINUOUS DRIER OPERATOR 08/16/2018 12:03 PM CONTINUOUS DRIER OPERATOR Narrative Resulting Agency Comment Performing Organization Information: Site ID: [id number] Name: [facility] Address: [address] [address] Director: Ramiro Contreras D.O., MPH Mago Ochoa NP LAB BLOOD ORDERABLES Roberta alford Result [facility] [place] from Last 3 Months or Most Recently Relevant to Health Maintenance Insurance [facility] AETNA MEDICARE GOLD AETNA MEDICARE GOLD Care Teams Quality Assurance Clerk Relationship Specialty Start Date End Date Hong Slater MD [address] [place] [address] PCP - General 12/09/16
--- OUTSIDE RECORDS SUMMARY | 2024-12-21 07:35 | XMS_ITS | Referral Summary ---
Author Organization [facility] [address] [facility] [address] Address [address] [place] [address] Care Team Providers Care Traffic Assistant Name Role Phone Hong Slater MD Primary Care Provide r Encounters Date Type Department Care Team Description 10/15/2024 11:30 AM ENVIRONMENTAL SERVICES LEAD Office Visit [facility] Cardiology [address] [place] [address] Hong Argueta MD Paroxysmal atrial fibrillation (HCC) (Primary Dx) from Last 3 Months Allergies No known active allergies Medications atorvastatin [...] mg tablet Take by mouth daily Active [id number]-ffoh-J mfolate-algal 27 mg iron-1.13 mg-581.92 mg capsule [...] 11/07/2017 Diabetes mellitus 06/10/2015 Overview (12/16/2016): Diabetes Social History Tobacco Use Types Packs/Day Years Used Date Smoking Tobacco: Never Smokeless Tobacco: Never Tobacco Cessation:Counseling Given: Not Answered Alcohol Use Standard Drinks/Week Comments No 0 (1 standard drink = 0.6 oz pur e alcohol) Comments Unknown Sex and Gender Information Value Date Recorded Sex Assigned at Not on file Legal Sex Female 3:07 PM ENVIRONMENTAL SERVICES LEAD Gender Identity Not on file Sexual Orientation Not on file Last Filed Vital Signs Vital Sign Reading Time Taken Comments Blood Pressure 118/68 10/15/2024 11:06 AM ENVIRONMENTAL SERVICES LEAD Pulse 96 10/15/2024 11:06 AM ENVIRONMENTAL SERVICES LEAD Temperature - - Respiratory Rate - - Oxygen Saturation 99% 10/15/2024 11:06 AM ENVIRONMENTAL SERVICES LEAD Inhaled Oxygen Concentration - - Weight 70.4 kg (155 lb 3.2 oz) 10/15/2024 11:06 AM ENVIRONMENTAL SERVICES LEAD Height 152.4 cm (5') 10/15/2024 11:06 AM ENVIRONMENTAL SERVICES LEAD Body Mass Index 30.31 10/15/2024 11:06 AM ENVIRONMENTAL SERVICES LEAD Plan of Treatment Not on file Procedures Procedure Name Priority Date/Time Associated Diagnosis Comments LIPID PANEL Routine 01/27/2021 8:56 AM CDT BASIC METABOLIC PANEL Routine 08/16/2018 12:02 PM ENVIRONMENTAL SERVICES LEAD New onset atrial fibrillation (HCC) from Last 3 Months or Most Recently Relevant to Health Maintenance Results * (ABNORMAL) Lipid panel (01/27/2021 8:56 AM CDT) SCRIBED Cholesterol, Total 119 0 - 200 EXTERNAL LAB SCRIBED HDL 36(A) 40 - 100 EXTERNAL LAB SCRIBED LDL 57 0 - 100 EXTERNAL LAB SCRIBED Triglycerides 191(A) 0 - 150 EXTERNAL LAB Blood specimen (specimen) us Historical Provider LAB BLOOD ORDERABLES Edit ed Result - Final EXTERNAL LAB * (ABNORMAL) Basic metabolic panel (08/16/2018 12:02 PM ENVIRONMENTAL SERVICES LEAD) Glucose 100(H) 65 - 99 mg/dL [facility] [place] Comment: Fasting reference interval For someone without known diabetes, a glucose value between 100 and 125 mg/dL is consistent with prediabetes and should be confirmed with a follow-up test. BUN 18 7 - 25 mg/dL [facility] [place] Creatinine 0.69 0.60 - 0.93 mg/dL [facility] [place] Comment: For patients >49 years of age, the reference limit for Creatinine is approximately 13% higher for people identified as -Bahamian. eGFR NON-AFR. CHILEAN 87 > OR = 60 mL/min/1 .73m2 [facility] [place] EGFR 101 > OR = 60 mL/min/1 .73m2 [facility] [place] BUN/creat ratio NOT APPLICABLE [...] [place] Blood specimen (specimen) 08/16/2018 12:02 PM ENVIRONMENTAL SERVICES LEAD 08/16/2018 12:03 PM ENVIRONMENTAL SERVICES LEAD Narrative Resulting Agency Comment Performing Organization Information: Site ID: [facility] Name: [facility] Address: [address] [address] Director: Ramiro Contreras D.O., MPH us Mago Ochoa NP LAB BLOOD ORDERABLES Roberta l Result [facility] [place] from Last 3 Months or Most Recently Relevant to Health Maintenance Insurance [id number] [place] [address] [employer] MEDICARE GOLD A[employer] MEDICARE GOLD Care Teams Traffic Assistant Relationship Specialty Start Date End Date Hong Slater MD [address] [place] [address] PCP - General 12/09/16
[2024-12-21 08:16] LABS: Alanine Aminotransferase 22 U/L (6-35); Albumin Level 4.3 g/dL (3.5-5.1); Alkaline Phosphatase 60 U/L (38-126); Anion Gap 9 mmol/L (4-12); Aspartate Amino Transferase 35 U/L (14-36); Bilirubin,Total 0.9 mg/dL (0.2-1.3); Blood Urea Nitrogen 22 mg/dL (7-17); Calcium 9.1 mg/dL (8.4-10.2); Carbon Dioxide 29 mmol/L (22-30); Chloride 101 mmol/L (98-107); Cholesterol 123 mg/dL (0-200); Estimated Glomerular Filt Rate > 60; Glucose 189 mg/dL (65-110); HDL Direct 36 mg/dL; Potassium 4.7 mmol/L (3.4-5.0); Sodium 139 mmol/L (137-145); Triglycerides 266 mg/dL (<150)
[2024-12-21 08:25] LABS: Creatinine Urine 108.6 mg/dL
[2024-12-21 08:28] LABS: LDL Cholesterol Direct 41 mg/dL
[2024-12-21 08:50] LABS: Vitamin D 25 Hydroxy 45.6 ng/mL
[2024-12-21 09:17] LABS: Hemoglobin A1C 7.7 % (<5.7)
[2024-12-21 09:38] LABS: MALB Creatinine Ratio 34.9 mg/g (0-30); Microalbumin Urine Random 37.9 mg/L (0-16.7)
== END 2024-12-21 07:32 | disposition home or self-care (01) ==
PROVIDERS: PCP Emergency Medicine; Visit Provider Emergency Medicine
DX: E55.9 Vitamin D deficiency, unspecified (principal); E11.9 Type 2 diabetes mellitus without complications; E78.5 Hyperlipidemia, unspecified; E78.2 Mixed hyperlipidemia
CPT/HCPCS: 36415; 80053; 80061; 82043; 82306; 83036

== ENCOUNTER 2025-03-31 06:57 | Day surgery (SDC) | payer MEDICARE, SELFPAY ==
--- NOTE | ~2025-03-31 | XR_ITS ---
XR fluoroscopy no charge Indication: Therapeutic intra-articular right SI joint injection TECHNIQUE: Fluoroscopy used during Therapeutic intra-articular right SI joint injection performed by [Ramiro Colon MD] on 03/31/2025. 20 seconds of fluoroscopy with 4 fluoroscopic i mages captured. FINDINGS: Correlate with procedure note. IMPRESSION: Fluoroscopy used during Therapeutic intra-articular right SI joint injection . Reviewed, dictated and finalized at location A.
--- OUTSIDE RECORDS SUMMARY | 2025-03-31 07:03 | XMS_ITS | Clinical Summary ---
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 Gender Identity Not on file Sexual Orientation Not on file Obstetrics History Last Filed Vital Signs Vital Sign Reading Time Taken Comments Blood Pressure 118/68 10/15/2024 11:06 AM MEDICAL FRONT DESK SPECIALIST Pulse 96 10/15/2024 11:06 AM MEDICAL FRONT DESK SPECIALIST Temperature - - Respiratory Rate - - Oxygen Saturation 99% 10/15/2024 11:06 AM MEDICAL FRONT DESK SPECIALIST Inhaled Oxygen Concentration - - Weight 70.4 kg (155 lb 3.2 oz) 10/15/2024 11:06 AM MEDICAL FRONT DESK SPECIALIST Height 152.4 cm (5') 10/15/2024 11:06 AM MEDICAL FRONT DESK SPECIALIST Body Mass Index 30.31 10/15/2024 11:06 AM MEDICAL FRONT DESK SPECIALIST Plan of Treatment Health Maintenance Due Date [...] eGFR 08/16/2019 08/16/2018 Lipid Panel 01/27/2022 01/27/2021, 04/12, 11/14/2018, Additional history exists Influenza Vaccine (#1) 2025 09/02/2019, 2017 DTaP/Tdap/Td Vaccine (2 - Td or Tdap) 02/15/2026 02/16/2016 Procedures Procedure Name Priority Date/Time Associated Diagnosis Comments LIPID PANEL Routine 01/27/2021 8:56 AM CDT BASIC METABOLIC PANEL Routine 08/16/2018 12:02 PM MEDICAL FRONT DESK SPECIALIST New onset atrial fibrillation (HCC) from Last [...] (ABNORMAL) Basic metabolic panel (08/16/2018 12:02 PM MEDICAL FRONT DESK SPECIALIST) Glucose 100(H) 65 - 99 mg/dL [facility] [place] Comment: Fasting reference interval For someone without known diabetes, a glucose value between 100 and 125 mg/dL is consistent with prediabetes and should be confirmed with a follow-up test. BUN 18 7 - 25 mg/dL [facility] [place] Creatinine 0.69 0.60 - 0.93 mg/dL [facility] [place] Comment: For patients >49 years of age, the reference limit for Creatinine is approximately 13% higher for people identified as -Ugandan. eGFR NON-AFR. DOMINICAN 87 > OR = 60 mL/min/1 .73m2 [...] [place] Calcium 9.4 8.6 - 10.4 mg/dL [facility] [place] Blood specimen (specimen) 08/16/2018 12:02 PM MEDICAL FRONT DESK SPECIALIST 08/16/2018 12:03 PM MEDICAL FRONT DESK SPECIALIST Narrative Resulting Agency Comment Performing Organization Information: Site ID: [facility] Name: [facility] [address] [facility] [place] [address] Director: Ramiro Contreras D.O., MPH Mago Ochoa NP LAB BLOOD ORDERABLES Roberta l Result [facility] [place] from Last 3 Months or Most Recently Relevant to Health Maintenance Insurance [facility] ADV[facility]AGE CON [facility] MEDICARE [facility] AETNA MEDICARE GOLD Care Teams Rn Wound Relationship Specialty Start Date End Date Hong Slater MD [address] [place] [address] PCP - General 12/09/16
--- OUTSIDE RECORDS SUMMARY | 2025-03-31 07:03 | XMS_ITS | Referral Summary ---
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 Gender Identity Not on file Sexual Orientation Not on file Last Filed Vital Signs Vital Sign Reading Time Taken Comments Blood Pressure 118/68 10/15/2024 11:06 AM BOILER SHOP MECHANIC Pulse 96 10/15/2024 11:06 AM BOILER SHOP MECHANIC Temperature - - Respiratory Rate - - Oxygen Saturation 99% 10/15/2024 11:06 AM BOILER SHOP MECHANIC Inhaled Oxygen Concentration - - Weight 70.4 kg (155 lb 3.2 oz) 10/15/2024 11:06 AM BOILER SHOP MECHANIC Height 152.4 cm (5') 10/15/2024 11:06 AM BOILER SHOP MECHANIC Body Mass Index 30.31 10/15/2024 11:06 AM BOILER SHOP MECHANIC Plan of Treatment Not on file Procedures Procedure Name Priority Date/Time Associated Diagnosis Comments LIPID PANEL Routine 01/27/2021 8:56 AM CDT BASIC METABOLIC PANEL Routine 08/16/2018 12:02 PM BOILER SHOP MECHANIC New onset atrial fibrillation (HCC) from Last 3 Months or Most Recently Relevant to Health Maintenance Results * (ABNORMAL) Lipid panel (01/27/2021 8:56 AM CDT) SCRIBED Cholesterol, Total 119 0 - 200 EXTERNAL LAB SCRIBED HDL 36(A) 40 - 100 EXTERNAL LAB SCRIBED LDL 57 0 - 100 EXTERNAL LAB SCRIBED Triglycerides 191(A) 0 - 150 EXTERNAL LAB Blood specimen (specimen) [facility] Provider LAB BLOOD ORDERABLES Edit ed Result - Final EXTERNAL LAB * (ABNORMAL) Basic metabolic panel (08/16/2018 12:02 PM BOILER SHOP MECHANIC) Glucose 100(H) 65 - 99 mg/dL [facility] [...] approximately 13% higher for people identified as -Puerto Rican. eGFR NON-AFR. VINCENTIAN 87 > OR = 60 mL/min/1 .73m2 [...] [place] Blood specimen (specimen) 08/16/2018 12:02 PM BOILER SHOP MECHANIC 08/16/2018 12:03 PM BOILER SHOP MECHANIC Narrative Resulting Agency Comment Performing Organization Information: Site ID: [place] Name: [facility] [facility] Address: [address] [place] [address] Director: Ramiro Contreras D.O., MPH us Mago Ochoa NP LAB BLOOD ORDERABLES Roberta l Result [facility] [place] from Last 3 Months or Most Recently Relevant to Health Maintenance Insurance [id number] [place] [address] A[employer] [place] [address] Care Teams Manager Market Intelligence Relationship Specialty Start Date End Date Hong Slater MD [address] [place] [address] PCP - General 12/09/16
--- NOTE | 2025-03-31 07:46 | WPDHPUPDATE1 ---
History and Physical Update Update Date/Time: 03/31/25 07:46 History and Physical has been reviewed, including an updated exam of the patient. There are NO changes in the patient's condition. Risks, benefits, and alternatives have been discussed and questions answered. Patient agrees to proceed with procedure.
--- NOTE | 2025-03-31 07:47 | W.PM.PROC2 ---
Procedure Note - Detailed Date of Procedure 03/31/25 Pre-op Diagnosis Sacroiliac Joint Arthropathy, Sacroiliitis Post-op Diagnosis Same Procedure Performed [Right] Sacroiliac Joint Steroid Injection under Fluoroscopic Guidance and with Contrast Control. Surgeon Ramiro Colon MD Company Laundry Worker None Anesthesia Local Description of Procedure INFORMED CONSENT: Risks, benefits and alternatives to the procedure were discussed in detail with the patient who expressed explicit understanding and consent to proceed. Patient was informed verbally and in written form regarding the risks associated with the procedure including the low risk of serious infection, bleeding/bruising, allergic reaction, nerve or organ injury, paralysis, procedural site pain or discomfort, worsening pain and/or mobility, failure to treat and/or disfigurement. The patient expressed explicit understanding and consent to proceed. All materials required for the procedure were available prior to procedure start. Site and side were marked prior to procedure and confirmed in the presence of the patient. PROCEDURE IN DETAIL: The patient was brought to the procedural suite and placed in the prone position. Patient was made comfortable with use of pillows under the head/chest, hips and ankles. Skin overlying the injection site on the affected side(s) was prepared broadly with ChloraPrep applicator and draped in a sterile manner. Aseptic technique was used throughout. The right SI joint was identified in the AP view and contralateral oblique angulation with caudal tilt was utilized to optimize visualization of the inferior and medial joint line representing the posterior portion of the joint. Local anesthesia was established by infiltration with approximately 5 mL of 2% lidocaine via a 1-1/2 inch 27-gauge needle. A 22-gauge 3.5 inch Quincke spinal needle was advanced until the needle entered the inferior third of the joint space approximately 1cm cephalad from its most inferior point. In the AP view, 0.5 mL of Omnipaque 300 contrast medium was injected after negative aspiration for CSF, blood or other bodily fluid, showing appropriate intra-articular spread of contrast without evidence of intravascular, perineural or intrathecal placement. A 1.5 mL solution containing 6 mg of betamethasone in 0.5% PF bupivacaine was injected after repeat negative aspiration. Appropriate spread of the injectate was confirmed with washout of previous injected contrast. No parasthesias were elicited. Needle was removed completely intact without difficulty. Images were saved and documented in the patient chart. Patient's skin was cleansed and sterile bandage applied. The patient tolerated the procedure well. The patient was transported to the recovery area in stable condition where they were observed for an appropriate amount of time prior to discharge, without evidence of complication. The patient was instructed to avoid excessive activity for the next 48 hours, including climbing and frequent use of stairs. Showers only for 48 hours. They were instructed not to drive or operate heavy machinery for 24 hours. They are to monitor for severe headaches, fevers, chills, night sweats, erythema/swelling at the site or any other signs of infection, bleeding/bruising, bowel or bladder changes as well as new pain, weakness or numbness in the upper or lower extremity. Should they notice these changes, they are instructed to call our office immediately or report directly to the nearest Emergency Department if no answer or if after posted office hours. COMPLICATIONS: None COMMENTS: None CONTRAST WASTED: 29.5mL Omnipaque 300. Complications No immediate complications Condition Stable Disposition Same day [facility] Billing Surgery - Charge Forward: Surgery Billing
[2025-03-31 08:05] VITALS: BP 149/73; PULSE 74; RESP 16; TEMP 36.4; O2SAT 100; BMI 29.1
[2025-03-31 08:43] VITALS: BP 195/92; PULSE 91; RESP 10; O2SAT 100
[2025-03-31 08:51] VITALS: BP 189/89; PULSE 85; O2SAT 100
[2025-03-31] MEDS: LIDOCAINE 1% PF INJ 5 ML VIAL 4 ML INFILTRATE (08:53)
[2025-03-31] MEDS: BETAMETHASONE SODIUM PHOSPHATE PF INJ 6 MG/ML VIAL INFILTRATE (08:54)
[2025-03-31 08:55] VITALS: BP 160/79; PULSE 68; RESP 18; O2SAT 100
== END 2025-03-31 09:12 | disposition home or self-care (01) ==
PROVIDERS: PCP Emergency Medicine; Visit Provider Anesthesiology Pain Medicine
PROC: (CPT G0260; principal; 2025-03-31 08:30)
DX: M46.1 Sacroiliitis, not elsewhere classified (principal)
CPT/HCPCS: G0260; 27096; 99199

== ENCOUNTER 2025-04-30 02:23 | Day surgery (SDC) | payer MEDICARE, SELFPAY ==
[2025-04-29 11:25] VITALS: BMI 30.1
[2025-04-30] VITALS (7 sets, daily range): BP systolic 137–149; BP diastolic 51–70; PULSE 79–92; RESP 14–23; TEMP 36.6; O2SAT 92–100; BMI 30.5
--- OUTSIDE RECORDS SUMMARY | 2025-04-30 02:26 | XMS_ITS | Clinical Summary ---
Author Organization [facility] [address] Address [address] [place] [address] Care Team Providers Care Lock Plater Name Role Phone Hong Slater MD Primary Care Provide r Allergies No known active allergies Medications atorvastatin (LIPITOR) 40 mg tablet take 1 by Oral route every day 0 03/24/20 11 Active niacin (NIASPAN) 500 mg tablet take 1 Tablet by oral route every day 0 0 11/30/19 14 Active lisinopril (PRINIVIL,ZESTRI L) 2.5 mg tablet take 1 tablet by oral route every day 0 0 11/30/19 14 Active alendronate (FOSAMAX) 70 mg tablet take 1 tablet by oral route every week in the morning, at least 30 min before first food, beverage, or medication of day 0 0 11/11/19 15 Active latanoprost (XALATAN) 0.005 % ophthalmic solution 1 drop nightly Active brimonidine (ALPHAGAN P) 0.1 % drops Active albuterol HFA (PROVENTIL HFA,VENTOLIN HFA,PROAIR HFA) 90 mcg/actuation inhaler 1 11/29/19 19 Active rivaroxaban (Xarelto) 20 mg tabletIndication s:New onset atrial fibrillation (HCC) Take 1 tablet (20 mg total) by mouth daily 180 tablet 09/12/19 20 Active metFORMIN (GLUCOPHAGE) 500 mg tablet Take 1 tablet (500 mg total) by mouth 2 (two) times a day 09/02/20 19 Active icosapent ethyL (VASCEPA) 1 gram capsule Take 2 capsules (2 g total) by mouth 2 (two) times a day Active fenofibrate (FENOGLIDE) 40 mg tablet Take by mouth daily Active rokfyerw48-ddsw- Lmfolate-algal 27 mg iron-1.13 mg-581.92 mg capsule Take by mouth Active furosemide (LASIX) 20 mg tablet Take 1 tablet (20 mg total) by mouth daily 03/29/20 24 Active sotaloL (BETAPACE) 80 mg tablet Take 1 tablet by mouth twice daily 180 tablet 04/07/20 25 Active sotaloL (BETAPACE) 80 mg tablet Take 1 tablet by mouth twice daily 180 tablet 1 10/14/19 25 025 Discontinued Active Problems Problem Noted Date Diagnosed Date Paroxysmal atrial fibrillation 10/23/2018 Chronic anticoagulation 09/14/2018 Atrial premature contractions 11/07/2017 Diabetes mellitus 06/10/2015 Overview (12/16/2016): Diabetes Encounters Date Type Department Care Team Description 04/21/2025 9:15 AM CDT Office Visit [facility] Medical [facility] Cardiology [address] [place] [phone] Hong Argueta MD Paroxysmal atrial fibrillation (HCC) (Primary Dx) 04/21/2025 Telephone [facility] Cardiology [address] [place] [phone] Hong Argueta MD from Last 3 Months Surgical History Surgery [...] on file Legal Sex Female 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 PM 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 Gender Identity Not on file Sexual Orientation Not on file Obstetrics History Last Filed Vital Signs Vital Sign Reading Time Taken Comments Blood Pressure 124/80 04/21/2025 9:05 AM CDT Pulse 95 04/21/2025 9:05 AM CDT Temperature - - Respiratory Rate - - Oxygen Saturation 96% 04/21/2025 9:05 AM CDT Inhaled Oxygen Concentration - - Weight 69.6 kg (153 lb 8 oz) 04/21/2025 9:05 AM CDT Height 152.4 cm (5') 04/21/2025 9:05 AM CDT Body Mass Index 29.98 04/21/2025 9:05 AM CDT Plan of Treatment Health Maintenance Due Date Last Done Comments Albumin Creatinine Ratio, Urine 1946 Depression Screening 1946 Fall Risk Assessment 1946 Hemoglobin A1C 1946 Hepatitis C Screening 1946 Osteoporosis Screening-Bone Density Scan 1946 Dilated Eye Exam 1946 Foot Exam 1946 Hepatitis B Screening 1964 Zoster Vaccine (1 of 2) 1996 Well Visit 65+ 2011 Pneumococcal vaccine 65+ (2 of 2 - PPSV23, PCV20, or PCV21) 09/12/2018 07/18/2018 eGFR 08/16/2019 08/16/2018 Lipid Panel 01/27/2022 01/27/2021, 04/12, 11/14/2018, Additional history exists Influenza Vaccine (#1) 2025 09/02/2019, 2017 DTaP/Tdap/Td Vaccine (2 - Td or Tdap) 02/15/2026 02/16/2016 Procedures Procedure Name Priority Date/Time Associated Diagnosis Comments ELECTROCARDIOGRAM REPORT Routine 025 11:11 AM CDT Paroxysmal atrial fibrillation (HCC) LIPID PANEL Routine 01/27/2021 8:56 AM CDT BASIC METABOLIC PANEL Routine 08/16/2018 12:02 PM HOSPITAL LIBRARIAN New onset atrial fibrillation (HCC) from Last 3 Months or Most Recently Relevant to Health Maintenance Results * Electrocardiogram Report (04/21/2025 11:11 AM CDT) Hong Argueta MD ECG ORDERABLES Final Re sult * (ABNORMAL) Lipid panel (01/27/2021 8:56 AM [...] (ABNORMAL) Basic metabolic panel (08/16/2018 12:02 PM HOSPITAL LIBRARIAN) Glucose 100(H) 65 - 99 mg/dL [facility] [...] approximately 13% higher for people identified as -Anguillan. eGFR NON-AFR. CHADIAN 87 > OR = 60 mL/min/1 .73m2 [...] [place] Blood specimen (specimen) 08/16/2018 12:02 PM HOSPITAL LIBRARIAN 08/16/2018 12:03 PM HOSPITAL LIBRARIAN Narrative Resulting Agency Comment Performing Organization Information: Site ID: [facility] Name: [facility] Address: [address] [address] Director: Ramiro Contreras D.O., MPH us Mago Ochoa NP LAB BLOOD ORDERABLES Roberta l Result [facility] [place] from Last 3 Months or Most Recently Relevant to Health Maintenance Insurance [id number] [place] [address] A[employer]NA MEDICARE GOLD [id number] AETNA MEDICARE GOLD Care Teams Lock Plater Relationship Specialty Start Date End Date Hong Slater MD [address] [place] [address] PCP - General 12/09/16
--- NOTE | 2025-04-30 11:30 | ECG_ITS ---
Test Date: 2025-04-30 11:34:52 Measurements Intervals [place] Rate: 78 P: 0 CO: 0 QRS: -27 QRSD: 96 T: 13 QT: 380 QTc: 435 Interpretive Statements ATRIAL FIBRILLATION WITH ABERRANT CONDUCTION OR VENTRICULAR PREMATURE COMPLEXES LOW QRS VOLTAGE IN PRECORDIAL LEADS POSSIBLE ANTERIOR MYOCARDIAL INFARCTION , PROBABLY OLD INFERIOR INFARCT, AGE INDETERMINATE BASELINE ARTIFACT- I, II, AVR, AVL ABNORMAL ECG No previous ECG available for comparison Electronically Signed On 04-30-2025 11:47:35 CDT by Pato Anderson D.O.
[2025-04-30 12:20] LABS: Anion Gap 8 mmol/L (4-12); Blood Urea Nitrogen 22 mg/dL (7-17); Calcium 9.6 mg/dL (8.4-10.2); Carbon Dioxide 28 mmol/L (22-30); Chloride 104 mmol/L (98-107); Estimated CRCL calculation 43 ml/min; Estimated Glomerular Filt Rate > 60; Glucose 105 mg/dL (65-110); Magnesium 1.4 mg/dL (1.6-2.3); Potassium 4.1 mmol/L (3.4-5.0); Sodium 140 mmol/L (137-145)
--- NOTE | 2025-04-30 13:30 | ECG_ITS ---
Test Date: 2025-04-30 14:24:49 Measurements Intervals [place] Rate: 83 P: 0 MD: 0 QRS: -28 QRSD: 91 T: -2 QT: 393 QTc: 463 Interpretive Statements ATRIAL FIBRILLATION BORDERLINE R WAVE PROGRESSION, ANTERIOR LEADS INFERIOR INFARCT, AGE INDETERMINATE BASELINE WANDER- AVR, AVL, AVF ABNORMAL ECG Compared to ECG 04/30/2025 11:34:52 NO SIGNIFICANT CHANGE Electronically Signed On 04-30-2025 15:04:11 CDT by Pato Anderson D.O.
--- NOTE | 2025-04-30 14:33 | WPDCARDPROC ---
Cardiac Cath Procedure Note Date of procedure:: 04/30/25 Performing physician:: Hong Argueta MD Indication:: Persistent atrial fibrillation Brief clinical history:: This is a 80-year-old woman with a history of atrial fibrillation which has been maintained in sinus rhythm with sotalol. She recently has noticed increasing shortness of breath and was found to be back atrial fibrillation. Her sotalol dosage was increased and she is admitted today for attempted electrically review restoring sinus rhythm. Procedure Procedure performed:: DC cardioversion Sedation/Medication given:: IV propofol 40 mg Estimated blood loss:: No blood loss Procedure note:: Patient was brought to the cardiac catheterization lab holding area in the postabsorptive state. Defibrillator patches were placed in the AP position the device was turned on at 200 joules output in a synchronized fashion. She received the propofol mentioned above which provided excellent sedation. She was counter shocked x1 at 200 joules which did restore sinus rhythm with frequent APCs and PVCs. Within less than 2 minutes, before a 12 lead ECG could be recorded she was already back in atrial fibrillation. Findings:: As above Conclusion:: Successful DC cardioversion of atrial fib restoring sinus rhythm however only transiently with the patient reverting back to atrial fibrillation very quickly. Hong Argueta MD [facility]
[2025-04-30] MEDS: PROPOFOL IV EMULSION 200 MG/20 ML VIAL 40 MG IV PUSH (14:44)
== END 2025-04-30 15:55 | disposition home or self-care (01) ==
PROVIDERS: PCP Emergency Medicine; Visit Provider Specialist
PROC: 5A2204Z Restoration of Cardiac Rhythm, Single (ICD-10-PCS; principal; 2025-04-30 13:00)
DX: I48.0 Paroxysmal atrial fibrillation (principal); Z79.51 Long term (current) use of inhaled steroids; Z79.83 Long term (current) use of bisphosphonates; Z79.84 Long term (current) use of oral hypoglycemic drugs; Z79.01 Long term (current) use of anticoagulants
CPT/HCPCS: 36415; 80048; 83735; 92960; J2704; J7030

== ENCOUNTER 2025-06-18 09:03 | Outpatient (CLI) | payer MEDICARE, SELFPAY ==
[2025-06-18 10:27] LABS: Hematocrit 33.0 % (37.0-47.0); Hemoglobin 10.3 g/dL (12.0-15.0); Immature Granulocyte Percent A 0.4 % (0-0.5); Lymphocytes Absolute Auto 1.55 K/mm3 (0.9-3.2); Mean Corpuscular HGB Conc 31.2 g/dl (32-36); Mean Corpuscular Hemoglobin 32.2 pg (26-34); Mean Corpuscular Volume 103.1 fl (80-100); Nucleated Red Blood Cells Absolute Auto 0.000 K/mm3 (0.0-0.012); Nucleated Red Blood Cells Perc 0.0 % (0.0-0.2); Platelet Count Result 217 k/mm3 (150-375); Red Blood Count 3.20 M/mm3 (4.2-5.4); White Blood Count 5.5 K/mm3 (4.5-10.0)
[2025-06-18 10:42] LABS: Hemoglobin A1C 5.6 % (<5.7)
[2025-06-18 11:14] LABS: Alanine Aminotransferase 19 U/L (6-35); Albumin Level 3.8 g/dL (3.5-5.1); Alkaline Phosphatase 85 U/L (38-126); Anion Gap 6 mmol/L (4-12); Aspartate Amino Transferase 31 U/L (14-36); Bilirubin,Total 0.7 mg/dL (0.2-1.3); Blood Urea Nitrogen 28 mg/dL (7-17); Calcium 9.0 mg/dL (8.4-10.2); Carbon Dioxide 29 mmol/L (22-30); Chloride 104 mmol/L (98-107); Cholesterol 133 mg/dL (0-200); Estimated Glomerular Filt Rate 60; Glucose 94 mg/dL (65-110); HDL Direct 38 mg/dL; Potassium 4.0 mmol/L (3.4-5.0); Sodium 139 mmol/L (137-145); Total Protein 7.2 g/dL (6.3-8.2); Triglycerides 172 mg/dL (<150)
[2025-06-18 11:28] LABS: MALB Creatinine Ratio 15.9 mg/g (0-30)
== END 2025-06-18 09:04 | disposition home or self-care (01) ==
LOC: ANHLAB 09:03
PROVIDERS: PCP Emergency Medicine; Visit Provider Emergency Medicine
DX: E78.5 Hyperlipidemia, unspecified (principal); E11.9 Type 2 diabetes mellitus without complications; I10 Essential (primary) hypertension; E55.9 Vitamin D deficiency, unspecified
CPT/HCPCS: 36415; 80053; 80061; 82043; 82306; 83036; 85025

== ENCOUNTER 2025-06-30 10:57 | Outpatient (CLI) | payer MEDICARE, SELFPAY ==
--- NOTE | ~2025-06-30 | DEXA_ITS ---
Bone Density Report Name: WILLY GRADY Age: 80 Sex: Female Ethnicity: White Date of : 1945 Indication: osteopenia; height loss; hysterectomy; Referring Provider: RISSA JACKMAN Study: Bone densitometry was performed. Exam Date: June 30, 2025 Accession number: [id number] Bone Density: Region BMD T-score Z-score Classification AP Spine(L1-L4) 1.017 -0.3 2.4 Normal Femoral Neck (Left) 0.505 -3.1 -0.8 Osteoporosis Total Hip (Left) 0.805 -1.1 0.9 Osteopenia Femoral Neck (Right) 0.604 -2.2 0.1 Osteopenia Total Hip (Right) 0.788 -1.3 0.7 Osteopenia Total Hip Mean 0.797 -1.2 0.8 Osteopenia World Health Organization criteria for BMD impression classify patients as: Normal (T-score at or above -1.0), Osteopenia (T-score between -1.0 and -2.5), or Osteoporosis (T-score at or below -2.5). 10-year Fracture Risk: FRAX not reported because: Some T-score for Spine Total or Hip Total or Femoral Neck at or below -2.5 Previous Exams: Region Exam Age BMD T-score BMD Change BMD Change Date g/cm2 vs Baseline vs Previous AP Spine (L1-L4) 06/30/2025 80 1.017 -0.3 0.118 (13.1%)* 0.118 (13.1%)* 02/24/2022 76 0.899 -1.3 Total Hip(Left) 06/30/2025 80 0.805 -1.1 0.069 (9.4%)* 0.066 (8.9%)* 02/24/2022 76 0.739 -1.7 0.003 (0.5%) -0.032 (-4.1%) 06/10/2019 74 0.771 -1.4 0.035 (4.8%)* 0.035 (4.8%)* 06/05/2017 72 0.736 -1.7 Total Hip(Right) 06/30/2025 80 0.788 -1.3 -0.033 (-4.0%) -0.016 (-2.0%) 02/24/2022 76 0.804 -1.1 -0.017 (-2.1%) -0.030 (-3.6%) 06/10/2019 74 0.834 -0.9 0.013 (1.6%) 0.013 (1.6%) 06/05/2017 72 0.820 -1.0 *Denotes significance at 95% confidence level, LSC for AP Spine = 0.022 g/cm2, LSC for Total Hip = 0.027 g/cm2 Clinical Information Provided by Patient: Has the following medical conditions: Hysterectomy Patient maximum height was 63.0 No regular weight bearing exercise Does not regularly consume dairy products Drinks caffeinated beverages Onset of menses at age 12 Number of children 2 Impression: The patient has osteoporosis, based on the Left Femoral Neck T-score. No significant bone loss was observed. Discussion: INCREASED RISK OF FRACTURE. BONE DENSITY IS UNDESIRABLY LOW AT ONE OR MORE SKELETAL SITES, CONSISTENT WITH POSTMENOPAUSAL OSTEOPOROSIS. This patient's lowest T-score meets the World Health Organization's (WHO) criteria for osteoporosis at one or more sites (T-score -2.5 or below). In untreated patients, the risk of osteoporotic fracture increases approximately two-fold for each 1.0 SD decrease in T-score. Low bone density is not the only risk factor for fracture; also consider factors such as patient's age, frailty or poor health, risk of falling, risk of injury, previous osteoporotic fracture, family history of osteoporosis, cigarette smoking, low body weight, etc. Not everyone with low bone mineral density has osteoporosis; osteomalacia and other metabolic bone disorders should also be considered. Patients who have osteoporosis should be evaluated for specific diseases and conditions (secondary causes) that may cause or contribute to bone loss. The [place] Association of Clinical Endocrinologists (AACE) and National Osteoporosis Foundation (NOF) recommend pharmacologic intervention for all postmenopausal women whose T-score is in this range. The patient should follow a healthful lifestyle (good nutrition with adequate calcium and vitamin D, and appropriate weight-bearing exercise). Follow-Up: Consider a repeat BMD and Vertebral Fracture Assessment (VFA) exam in 2 years or sooner if medically necessary, to reassess this patient's status. Reported by: MILLIE on 06/30/2025 11:45:00 AM. Reviewed, dictated and finalized at location A.
== END 2025-06-30 10:58 | disposition home or self-care (01) ==
LOC: ANHFOHIMG 10:58
PROVIDERS: PCP Emergency Medicine; Visit Provider Emergency Medicine
DX: Z78.0 Asymptomatic menopausal state (principal); E55.9 Vitamin D deficiency, unspecified; M81.0 Age-related osteoporosis without current pathological fracture; M85.852 Other specified disorders of bone density and structure, left thigh; M85.851 Other specified disorders of bone density and structure, right thigh
CPT/HCPCS: 77080

== ENCOUNTER 2025-07-15 08:20 | Outpatient (CLI) | payer MEDICARE, SELFPAY ==
--- OUTSIDE RECORDS SUMMARY | 2010-03-25 04:15 | XMS_ITS | Continuity of Care Document ---
Author Organization [facility] [place] [address] [place] [address] Phone Care Team Providers Care Special Services Supervisor Name Role Phone Yeny Soot Unavailable Unavailable Procedures Procedure Date Office/outpatient Visit, Est Fundus Photography W/ Report Visual Field Examination(s) Office/outpatient Visit, Est Corneal Pachymetry Fundus Photography W/ Report Office/outpatient Visit, Est Visual Field Examination(s) Office/outpatient Visit, Est Post-op Follow-up Visit Post-op Follow-up Visit Post-op Follow-up Visit Remove Cataract, Insert Lens Eye Exam Established Pt IOLMaster Office/outpatient Visit, Est Fundus Photography W/ Report Advance Directives Directive Yes / No Effective Date File Name No Information Encounters Encounter Description Practice Location Reason(s) For Visit Diagnoses Date Provider Providers Copied on Encounter Office/outpat ient Visit, Est [facility], [address] [place] [address] [address], [place], [place], [id number], [place] tel:[phone] [facility] No Information 0 Brittany Saini. [address] [facility] , [address], [place], [address], [place]. tel:[phone] Referring Provider: Yeny Mccray, [address], [place], [place], [facility]. tel:[phone] [facility], [address] [place] [address] [address], [place], [place], [id number], [place] tel:[phone] [facility] [place] No Information 9 Brittany Saini. [address] , [address], [place], [place], [facility], [place]. tel:[phone] Referring Provider: Yeny Mccray, [address], [place], [facility]. tel:[phone] [place]pat [place], [facility] [place] [address] [place] [address] [address], [place], [place], [id number], tel:[phone] [facility] [place] No Information 9 Brittany Saini. [address] , [address], [place], [facility], [place]. tel:[phone] Referring Provider: Yeny Mccray, [address], [place], [facility]. tel:[phone] Office/outpat ient Visit, [facility] [place] [address] [place] [address] [address], [place], [place], [id number], [place] tel:[phone] [facility] No Information 0 200 9 Brittany [address] , [address], [place], [facility], [place]. tel:[phone] [facility], [address] [place] [address] [address], [place], [place], [id number], [place] tel:[phone] [facility] No Information 200 8 Brittany Saini. [address] [facility] , [address], [place], [facility], [place]. tel:[phone] Referring Provider: Yeny Mccray [address], [place], [facility]. tel:[phone] Office/outpat ient Visit, Est [facility], [address] [place] [address] [address], [place], [place], [id number], [place] tel:[phone] [facility] No Information Mar-0 6-200 8 Brittany Saini. [address] , [address], [place], [facility], [place]. tel:[phone] [facility], [address] [place] [address] [address], [place], [place], [id number], [place] tel:[phone] [facility] No Information Oct-1 1-200 7 Brittany Goodwin [address] , [address], [place], [facility], [place]. tel:[phone] [facility], [address] [place] [address] [address], [place], [place], [address], [place] tel:[phone] [facility] No Information Sep-1 3-200 7 Brittnay [address] [facility] [address] , [address], [place], [facility], [place]. tel:[phone] [facility], [address] [place] [address] [address], [place], [place], [id number], [place] tel:[phone] [facility] No Information Sep-0 6-200 7 Brittany Goodwin [address] , [address], [place], [address], [place]. tel:[phone] [facility], [address], [place], [place], [address], [place] tel:[phone] [facility] No Information Sep-0 5-200 7 Brittany Goodwin [address] , [address], [place], [facility], [place]. tel:[phone] [facility], [address], [place], [place], [address], tel:[phone] SEC [facility] No Information 200 7 Brittany Saini. [address] [facility] , [address], [place], [facility], . tel:[phone] Referring Provider: [address] [facility] [address], [place], [facility]. tel:[phone] Office/outpat ient Visit, [facility] [place] [address], [place], [place], [address], tel:[phone] SEC [facility] No Information 7 Brittany Goodwin [address] [facility] , [address], [place], [facility], . tel:[phone] Referring Provider: [address] [facility] [address], [place], [facility]. tel:[phone] Family History Family Member Type Diagnosis Age At Onset No Information Payers Payer name Insurance type Covered libertarian ID Authoriza tion(s) No Information Social History Type Description Quantity Date Captured Comments Sex Female Smoking Status No Information Chief Complaint And Reason For Visit No Information Reason For Referral Reason For Referral No Information History Of Present Illness Encounter Date Complaint History Of Prese nt Illness No Information Functional Status Date Functional Assessmen t No Information Instructions Date Instruction Additional Infor mation No Information Assessments Type Assessment Date No Information Patient Care Teams Name Effective Dates (start - stop) Status Members No Information
--- NOTE | ~2025-07-15 | MM_ITS ---
EXAMINATION: MM screening katherin BI w murali HISTORY: Screening TECHNIQUE: Craniocaudal and mediolateral oblique 3-D tomosynthesis images were obtained and synthetic 2-D images were generated. CAD analysis was submitted and interpreted. COMPARISON: Comparison to multiple prior studies sequentially, with oldest reviewed study dated , 10/01/2019 BREAST PARENCHYMAL COMPOSITION: There are scattered areas of fibroglandular density. FINDINGS: There is no evidence of suspicious mass, calcification, or architectural distortion to suggest malignancy in either breast. IMPRESSION: 1. No mammographic evidence of malignancy. 2. Recommend routine screening mammography in one year. BI-RADS Category 1: Negative Reviewed, dictated and finalized at location B. CIPAL SOLUTIONS ARCHITECT
--- OUTSIDE RECORDS SUMMARY | 2025-07-15 08:34 | XMS_ITS | Encounter Summary ---
Author Organization [facility] Healthcare Address [address] [place] [address] Care Team Providers Care Sports Photographer Name Role Phone Hong Slater MD Primary Care Provide r Encounter Details Date Type Department Care Team (Late st Contact Info) Description 04/30/2025 Orders Only [facility] Health Information Management [address] [place] [phone] Scanning, Provider Social History Tobacco Use Types Packs/Day Years Used Date Smoking Tobacco: Never Smokeless Tobacco: Never Alcohol Use Standard Drinks/Week Comments No 0 (1 standard drink = 0.6 oz pur e alcohol) Comments Unknown Sex and Gender Information Value Date Recorded Sex Assigned at Not on file Legal 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 Gender Identity Not on file Sexual Orientation Not on file documented as of this encounter Plan of Treatment Not on file documented as of this encounter Procedures Procedure Name Priority Date/Time Associated Diagnosis Comments CARDIOLOGY DOCUMENT SCAN 04/30/2025 documented in this encounter Results * Cardiology Document Scan (04/30/2025) Anatomical Region Laterality Modality Other us Provider Scanning CV CARDIAC SERVICES PROCEDURES Edited Result - Final documented in this encounter Visit Diagnoses Not on filedocumented in this encounter Care Teams Sports Photographer Relationship Specialty Start Date End Date Hong Slater MD [address] [place] [address] PCP - General 12/09/16 documented as of this encounter
--- OUTSIDE RECORDS SUMMARY | 2025-07-15 08:34 | XMS_ITS | Clinical Summary ---
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 Name Role Phone Hong Slater MD Primary [...] mg tablet Take by mouth daily Active icrsvtvc23-cnlm-R mfolate-algal 27 mg iron-1.13 mg-581.92 mg capsule Take by mouth Active furosemide (LASIX) 20 mg tablet Take 1 tablet (20 mg total) by mouth daily 4 Active metoprolol XL (TOPROL-XL) 100 mg 24 hr tablet Take 1 tablet (100 mg total) by mouth daily 5 Active Active Problems Problem Noted Date Diagnosed Date Permanent atrial fibrillation 05/15/2025 Chronic anticoagulation 09/14/2018 Atrial premature contractions 11/07/2017 Diabetes mellitus 06/10/2015 Overview (12/16/2016): Diabetes Resolved Problems Problem Noted Date Diagnosed Date Resolved Date Paroxysmal atrial fibrillation 10/23/2018 05/15/2025 Encounters Date Type Department Care Team Description 07/04/2025 Telephone [facility] Cardiology [address] [place], [place] [phone] Hong Argueta MD generic xarelto 06/10/2025 9:30 AM CDT Office Visit [facility] Cardiology [address] [place] [phone] Mago Ochoa NP Permanent atrial fibrillation (HCC) (Primary Dx); Chronic anticoagulation 05/15/2025 1:15 PM CDT Office Visit [facility] Cardiology [address] [place] [phone] Hong Argueta MD Chronic anticoagulation (Primary Dx); Permanent atrial fibrillation (HCC) 05/01/2025 Orders Only [facility] Cardiology [address] [place] [phone] Darlene Barroso MD 05/01/2025 Telephone [facility] Cardiology [address] [place] [phone] Hong Argueta MD 04/30/2025 Orders Only [facility] Health Information Management [address] [place] [phone] Scanning, Provider 04/21/2025 9:15 AM CDT Office Visit [facility] Cardiology [address] [place] [phone] Hong Argueta MD Paroxysmal atrial fibrillation (HCC) (Primary Dx) 04/21/2025 Telephone [facility] [address] [place] [phone] Hong Argueta MD from Last 3 Months [...] on file 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 Gender Identity Not on file Sexual Orientation Not on file Last Filed Vital Signs Vital Sign Reading Time Taken Comments Blood Pressure 126/60 06/10/2025 9:06 AM CDT Pulse 80 06/10/2025 9:06 AM CDT Temperature - - Respiratory Rate - - Oxygen Saturation 98% 06/10/2025 9:06 AM CDT Inhaled Oxygen Concentration - - Weight 70.8 kg (156 lb) 06/10/2025 9:06 AM CDT Height 152.4 cm (5') 06/10/2025 9:06 AM CDT Body Mass Index 30.47 06/10/2025 9:06 AM CDT Plan of Treatment Health Maintenance [...] 0801/2020, 11/14/2018, Additional history exists Influenza Vaccine (#1) 2025 09/02/2019, 2017 DTaP/Tdap/Td Vaccine (2 - Td or Tdap) 02/15/2026 02/16/2016 Procedures Procedure Name Priority Date/Time Associated Diagnosis Comments ELECTROCARDIOGRAM REPORT Routine 025 8:41 AM CDT Permanent atrial fibrillation (HCC) CARDIOLOGY DOCUMENT SCAN Routine 4:01 PM CDT CARDIAC CATHETERIZATION Routine 04/30/20 12:03 PM CDT CARDIOVERSION Routine 04/30/2025 12:03 PM CDT CARDIOLOGY DOCUMENT SCAN 04/30/2025 SCAN - LABS 04/30/2025 ELECTROCARDIOGRAM REPORT Routine 025 11:11 AM CDT Paroxysmal atrial fibrillation (HCC) LIPID PANEL Routine 01/27/2021 8:56 AM CDT BASIC METABOLIC PANEL Routine 08/16/2018 12:02 PM PAYROLL OFFICER New onset atrial fibrillation (HCC) from Last 3 Months or Most Recently Relevant to Health Maintenance Results * Electrocardiogram Report (05/15/2025 8:41 AM CDT) us Hong Argueta MD ECG ORDERABLES Final Re sult * Cardiology Document Scan (04/30/2025 4:01 PM CDT) Anatomical Region Laterality Modality Other us Hong Argueta MD CV CARDIAC SERVICES PROC EDURES Final Result * Cardiac Catheterization (04/30/2025 12:03 PM CDT) Anatomical Region Laterality Modality X-Ray Angiograph y Result [facility] Historical Provider CV CARDIAC CATH PROCEDURE S Final Result * CARDIOVERSION [id number] (04/30/2025 12:03 PM CDT) Anatomical Region Laterality Modality X-Ray Angiograph y Result [facility] Historical Provider CV ELECTROPHYSIOLOGY PROC S Edited Result - Final * SCAN - LABS (04/30/2025) Provider Scanning Final Result * Cardiology Document Scan (04/30/2025) Anatomical Region Laterality Modality Other Provider Scanning CV CARDIAC SERVICES PROCEDURES Edited Result - Final * Electrocardiogram Report (04/21/2025 11:11 AM CDT) Result [facility] Hong Argueta MD ECG ORDERABLES Final Re sult * (ABNORMAL) Lipid panel (01/27/2021 8:56 AM CDT) Pathologist [facility] SCRIBED Cholesterol, Total 119 0 - 200 EXTERNAL LAB SCRIBED HDL 36(A) 40 - 100 EXTERNAL LAB SCRIBED LDL 57 0 - 100 EXTERNAL LAB SCRIBED Triglycerides 191(A) 0 - 150 EXTERNAL LAB Blood specimen (specimen) Result [facility] Historical Provider LAB BLOOD ORDERABLES Edit ed Result - Final EXTERNAL LAB * (ABNORMAL) Basic metabolic panel (08/16/2018 12:02 PM PAYROLL OFFICER) Glucose 100(H) 65 - 99 mg/dL [facility] [...] for people identified as -Ugand[place]. eGFR NON-AFR. FILIPINO 87 > OR = 60 mL/min/1 .73m2 [...] [place] Blood specimen (specimen) 08/16/2018 12:02 PM PAYROLL OFFICER 08/16/2018 12:03 PM PAYROLL OFFICER Narrative Resulting Agency Comment Performing Organization Information: Site ID: [id number] Name: [facility] Address: [address] [facility] [place] [phone] Director: Ramiro Contreras D.O., MPH Mago Ochoa NP LAB BLOOD ORDERABLES Roberta l Result [facility] [place] from Last 3 Months or Most Recently Relevant to Health Maintenance Insurance [facility] AETNA MEDICARE GOLD AETNA MEDICARE GOLD Care Teams Hand Endband Cutter Relationship Specialty Start Date End Date Hong Slater MD [address] [place] [address] PCP - General 12/09/16
== END 2025-07-15 08:21 | disposition home or self-care (01) ==
LOC: ANHFOHIMG 08:21
PROVIDERS: PCP Emergency Medicine; Visit Provider Emergency Medicine
DX: Z12.31 Encounter for screening mammogram for malignant neoplasm of breast (principal)
CPT/HCPCS: 77063; 77067